=== PATIENT | female | born 1995 | race Caucasian/White ===

== ENCOUNTER 2025-04-30 08:25 | Outpatient (REF) | payer MEDICAID, SELFPAY ==
--- OUTSIDE RECORDS SUMMARY | 2025-04-30 08:31 | XMS_ITS | Data Portability ---
Author Organization [place] - [facility], Allergy Address [address] [address] Care Team Providers Care Washing Machine Installer Name Role Phone [facility] Primary Care Provider NAME, REYMUNDO Primary Care Provider Assessment Encounter Date Assessment Date Assessment LastModified by Organization Details LastModified Time 02/15/2025 02/15/2025 29-year-old female with a history of allergic rhinitis on IT presents today with epistaxis. There is a little dried blood on the left. I recommended taking a break from the antihistamine and nasal steroid spray. When she resumes them I recommended using cross handed technique. We had a detailed discussion on nasal humidification with humidifier, saline sprays, saline jelly at night, applied to the outer nares and not with a Qtip. Using pressure and Afrin as needed for a nosebleed was discussed. She declined cautery at this time and will try the other methods first. She also has some left-sided ear pressure which has improved. This is probably related to her allergies. Middle ear is well aerated. We can assess further with audiometric testing if symptoms worsen. [email or web address] Not available 02/16/2025 08:46:47 03/05/2025 03/05/2025 Visit With: Cathy Colbert Use of Antihistamines: Yes If yes: Vial Test Change in medications: No If yes Increase in asthma symptoms If yes, inhaler use: Reaction to last injections: No If yes: Allergy Symptoms: Other: Missed: Dose Aware of Vial Test Yes Notes: [email or web address] Not available 03/05/2025 11:22:54 03/19/2025 03/19/2025 Visit With: Altagracia Abreu RN Use of Antihistamines: No If yes: Vial Test Yes Change in medications: No If yes Increase in asthma symptoms No If yes, inhaler use: Reaction to last injections: No If yes: Allergy Symptoms: Other: Missed: 1 week Dose Aware of Vial Test Aware: Notes:vial test placed by Oksana flores Not available 03/19/2025 09:22:20 04/09/2025 04/09/2025 Visit With: PHUONG Alicea Use of Antihistamines: Yes If yes: Vial Test Change in medications: No If yes Increase in asthma symptoms If yes, inhaler use: Reaction to last injections: No If yes: Allergy Symptoms: Other: Missed: 2 weeks Dose Repeated Aware of Vial Test Aware: Notes: [email or web address] Not available 04/09/2025 12:14:52 04/14/2025 04/14/2025 Visit With: PHUONG Alicea Use of Antihistamines: Yes If yes: Vial Test Change in medications: No If yes Increase in asthma symptoms If yes, inhaler use: Reaction to last injections: No If yes: Allergy Symptoms: Other: Missed: Dose Aware of Vial Test Aware: Notes: [email or web address] Not available 04/14/2025 10:17:16 Plan of Treatment Reminders Order Date Submit Date Provider Last Modified By Organization Details Last Modified Time Details Appointments [facility]- Allergy f-up 6mon 2024 09:00A M DUC WILSON MD Not available Not available Not available Lab None recorded . Referral None recorded . Procedures None recorded . Surgeries None recorded . Imaging None recorded . Medication Orders None recorded . Patient TargetsNo targets recorded. Patient InstructionsNo instructions recorded. Reason for Referral None Reported. Problems Name Problem SNOMED Code Status Onset Date Resolution Date Notes Provider Name and Address Organization Details Recorded Time Abnormal auditory perception 19255665 Active 2023 Aisha narvaez [place] - [facility] 13:28:19 Allergic rhinitis 66071605 Active 2023 KANWAL WALDRON PA-C [address] [place] [address], [address] [place] [address] - [facility] 4 13:45:20 Seasonal allergic rhinitis 838989820 Active 2023 KANWAL WALDRON PA-C 100 [facility], E [facility], [place], [address], [facility] - [facility] [place] 4 13:45:35 Non-allergi c rhinitis 817834991559 Active 2023 KANWAL WALDRON PA-C 100 [facility], E [facility], [place], [address], [facility] - [facility] [place] 4 13:45:35 Feeling of lump in throat 244134490 Active 2023 KANWAL WALDRON PA-C 100 [facility], E [facility], [place], [address], [facility] - [facility] [place] 4 16:11:03 Perennial allergic rhinitis 979711480 Active 2024 KANWAL WALDRON PA-C 100 [facility], E [facility], [facility], [address], [facility] - [facility] [place] 5 08:56:52 Bleeding from nose 373360400 Active 2024 OLVIN SEGURA MD 100 [facility], E [facility], [facility], [address], [facility] - [facility] [place] 5 08:44:48 Allergic rhinitis caused by pollen 69228830 Active 2024 OLVIN SEGURA MD 100 [facility], E [facility], [place], [address], [facility] - [facility] [place] 5 08:44:59 Dysfunction of left eustachian tube 2617693179435 106 Active 2024 OLVIN SEGURA MD 100 [facility],[address], [facility], [address], [facility] - [facility] 5 08:45:10 Problem Notes None recorded. Procedures Surgical History Date Name Laterality Status Provider Name and Address Organization Details Recorded Time 04/14/20 25 Allergy Immunotherapy Injections completed GLORIA DICKSON, RMElissa [address], [place], [address], [place] - [facility] 04/14/2025 10:16:59 04/09/20 25 Allergy Immunotherapy Injections completed PHUONG HUDSON [address], [place], [address], [place] [facility] 04/09/2025 12:14:36 03/19/20 25 Allergy Immunotherapy Injections completed BETSEY ABREU RN [address], [place], [address], [place] [facility] 03/19/2025 09:21:37 03/05/20 25 Allergy Immunotherapy Injections completed PHUONG HUDSON [address], [place], [address], [place] [facility] 03/05/2025 11:22:37 02/13/20 25 Allergy Immunotherapy Injections completed BETSEY ABREU RN [address] [facility], [place], [address], [place] [facility] 02/12/2025 09:59:36 02/06/20 25 Allergy Immunotherapy Injections completed BETSEY ABREU RN [address] [place] [address], [address], [place] [facility] 02/05/2025 10:59:03 01/23/20 25 Allergy Immunotherapy Injections completed PHUONG HUDSON [address], [place], [address], [place] [facility] 01/22/2025 09:10:11 01/14/20 25 Allergy Immunotherapy Injections completed PHUONG HUDSON [address], [place], [address], [place] [facility] 01/13/2025 10:43:27 01/02/20 25 Allergy Immunotherapy Injections completed GLORIA DICKSON RMA [address], [place], [address], [place] [facility] 01/01/2025 09:41:22 03/07/20 25 Allergy Immunotherapy Injections completed LELO COLBERT A [address], [place], [address], [facility] - [facility] 12/18/2024 09:51:23 12/11/19 25 Allergy Immunotherapy Injections completed BETSEY ABREU RN [address] [facility] [address], [place], [address], [facility] - [facility] 12/11/2024 09:18:09 12/04/19 25 Allergy Immunotherapy Injections completed GLORIA DICKSON, RMA [address], [place], [address], [facility] - [facility] 12/04/2024 13:23:39 11/23/19 25 Allergy Immunotherapy Injections completed GLORIA DICKSON, RMA [address] [facility] [address], [place], [address], [facility] - [facility] 11/23/2024 09:43:57 10/16/19 25 Allergy Testing-Full completed PHUONG HUDSON [address] [facility] [address] [facility], [place], [address], [facility] - [facility] 10/16/2024 10:11:58 10/13/20 24 Allergy Testing Modified- Quantitative Testing (MQT) Only completed LELO COLBERT [facility] [address] [facility], [place], [address], [facility] - [facility] 10/13/2024 10:01:03 09/07/20 24 Air & Speech Audio with Tymps - 06368, 95603 & 43482 completed Aisha Weinberg [place] - [facility] 09/07/2024 13:28:10 Tonsillectomy completed Osbaldo Hastings [place] - [facility] 09/07/2024 13:39:08 Imaging Results None recorded. Procedure Notes None recorded. Medical Equipment None Reported. Allergies No known drug allergies Medications Name Sig Start Date Stop Date Status Note LastModified by Organization Details LastModified Time cetirizine 10 mg tablet TAKE 1 TABLET BY MOUTH EVERY DAY IN THE MORNING active Not Available Not Available No t Available azelastine 137 mcg (0.1 %) nasal spray SPRAY 2 SPRAYS BY INTRANASA L ROUTE TWICE A DAY FOR 30 DAYS 2024 active Not Available Not Available Not Avai lable epinephrine 0.3 mg/0.3 mL injection, auto-inject or TAKE 1 AUTO BY INJECTION ROUTE FOR 180 DAYS, FOR ANAPHYLAX IS. active Not Available Not Available No t Available fluticasone propionate 50 mcg/actuati on nasal spray,suspe nsion SPRAY 2 SPRAYS INTO EACH NOSTRIL IN THE MORNING SHAKE GENTLY/TX MADISON BEFORE 1ST USE&CLEAN TIP active Not Available Not Available No t Available olmesartan 5 mg tablet TAKE 1 TABLET BY MOUTH EVERY DAY IN THE MORNING active Not Available Not Available No t Available Symbicort 80 mcg-4.5 mcg/actuati on HFA aerosol inhaler PLEASE SEE ATTACHED FOR DETAILED DIRECTION S 02/15 completed Not Available Not Available Not Available Vitals Date Recorded Body height Body mass index (BMI) Body weight Provider Name and Address Organization Details Last Updated DateTime 02/15/2025 157.48 cm 37.5 kg/m2 14368.44 g Ally Jama [place] - [facility] 02/15/2025 14:25:19 Social History None recorded. Functional Status None recorded. Mental Status None recorded. Family History Nothing Reported. Medical History Condition Response Emphysema N Migraines Y Asthma Y Hypertension Y Gynecological HistoryNo gynecological history recorded. Obstetrics History GPAL:G 0 P 0 0 0 0 Past Encounters Encounter ID Performer Location Encounter Start Date Encounter Closed Date Diagnosis/Indication Diagnosis SNOMED-CT Code Diagnosis ICD10 Code Diagnosis Note [id number] KANWAL WALDRON PA-C [facility] [address] [address] 09/07/2024 12:40:34 09/08/2024 07:20:13 Abnormal auditory perception 82803254 H93.299 Audiologic al evaluation results: Right ear: Normal hearing with excellent word recognitio n. Left ear: Normal hearing with excellent word recognitio n. Tympanomet ry: Right Ear:Type As Left Ear:Type As Allergic rhinitis 094756 04 J30.9 Feeling of lump in throat 898614284 R09.89 [id number] PHUONG HUDSON [facility] [address] [place] [address] [address] 10/13/2024 08:46:06 10/13/2024 10:11:59 Allergic rhinitis 97421454 J30.9 [id number] PHUONG HUDSON [facility] [address] [place] [address],[facility] [address], [place] [address] 10/16/2024 08:51:44 10/16/2024 10:14:06 Allergic rhinitis 40407458 J30.9 [id number] KANWAL WALDRON PA-C [facility] - Ashok r[address]os 100 [facility] [place], [place] [address] 10/27/2024 08:50:14 10/27/2024 09:17:40 Perennial allergic rhinitis 429139614 J30.89 Allergic rhinitis 780421 04 J30.89 [id number] GLORIA WATSON, [facility] 100 [facility] [address], [place] [address] 11/23/2024 09:07:25 11/23/2024 09:44:42 Perennial allergic rhinitis 352734384 J30.89 Patient presents to begin immunother apy injections . Reviewed injection hours, importance of compliance and of reporting any changes in medication s. Also reviewed importance of reporting any local reactions to immunother apy injections . For patients of child bearing age, reviewed importance of reporting . Follow up with MD made in 6 months. [id number] GLORIA WATSON [facility] [address] [place] [address],[facility] [address], [place] [address] 12/04/2024 13:11:06 12/04/2024 13:25:21 Perennial allergic rhinitis 914187039 J30.89 Patient presents to begin immunother apy injections . Reviewed injection hours, importance of compliance and of reporting any changes in medication s. Also reviewed importance of reporting any local reactions to immunother apy injections . For patients of child bearing age, reviewed importance of reporting . Follow up with MD made in 6 months. [id number] BETSEY ABREU RN Allergy 100 [facility] [address], [place] [address] 12/11/2024 09:08:33 12/11/2024 09:18:30 Perennial allergic rhinitis 238610591 J30.89 [id number] PHUONG HUDSON [address] [place] [address], ite [address] [place] [address] 12/18/2024 09:34:41 12/18/2024 09:52:22 Perennial allergic rhinitis 605783644 J30.89 [id number] GLORIA WATSON [facility] [address] [place] [address], it[address] [place] [address] 01/01/2025 09:31:51 01/01/2025 09:41:49 Perennial allergic rhinitis 861590505 J30.89 Patient presents to begin immunother apy injections . Reviewed injection hours, importance of compliance and of reporting any changes in medication s. Also reviewed importance of reporting any local reactions to immunother apy injections . For patients of child bearing age, reviewed importance of reporting . Follow up with MD made in 6 months. [id number] GLORIA WATSON [facility] [address] [place] [address], ite [address] [place] [address] 01/13/2025 10:21:26 01/13/2025 10:44:12 Perennial allergic rhinitis 766438464 J30.89 Patient presents to begin immunother apy injections . Reviewed injection hours, importance of compliance and of reporting any changes in medication s. Also reviewed importance of reporting any local reactions to immunother apy injections . For patients of child bearing age, reviewed importance of reporting . Follow up with MD made in 6 months. [id number] LELO COLBERT [facility] [address] [place] [address], it[address] [place] [address] 01/22/2025 09:02:38 01/22/2025 09:10:28 Perennial allergic rhinitis 896304173 J30.89 [id number] BETSEY ABREU RN Allergy [address] [place] [address],[place] [facility] [address] [place] [address] 02/05/2025 10:46:08 02/05/2025 10:59:32 Perennial allergic rhinitis 910817975 J30.89 [id number] BETSEY ABREU RN Allergy [address] [place] [address],[place] [facility] [address] [place] [address] 02/12/2025 09:01:26 02/12/2025 10:00:03 Perennial allergic rhinitis 771984374 J30.89 [id number] OLVIN SEGURA MD [facility] 100 [place] [address] 02/15/2025 14:00:46 02/15/2025 14:40:49 Bleeding from nose 707471500 R04.0 Allergic r hinitis caused by pollen 96497207 J30.1 Dysfunctio n of left eustachian tube 6252015263 305421 H69.92 [id number] LELO COLBERT [facility] [address] [place] [address], [place] [address] 03/05/2025 09:06:49 03/05/2025 11:36:29 Perennial allergic rhinitis 286604174 J30.89 [id number] BETSEY ABREU RN Allergy [address] [place] [address], [place] [address] 03/19/2025 09:01:12 03/19/2025 09:22:46 Perennial allergic rhinitis 812457180 J30.89 [id number] GLORIA WATSON, [facility] [address] [place] [address] [place] [address] 04/09/2025 11:05:22 04/09/2025 12:15:06 Perennial allergic rhinitis 444931698 J30.89 Patient presents to begin immunother apy injections . Reviewed injection hours, importance of compliance and of reporting any changes in medication s. Also reviewed importance of reporting any local reactions to immunother apy injections . For patients of child bearing age, reviewed importance of reporting . Follow up with MD made in 6 months. [id number] GLORIA WATSON, [facility] [address] [place] [address],[facility] 100 [place] [address] 04/14/2025 09:50:22 04/14/2025 10:17:40 Perennial allergic rhinitis 928469199 J30.89 Patient presents to begin immunother apy injections . Reviewed injection hours, importance of compliance and of reporting any changes in medication s. Also reviewed importance of reporting any local reactions to immunother apy injections . For patients of child bearing age, reviewed importance of reporting . Follow up with MD made in 6 months. Health Concerns Section Related Observation LastModified by Organization Detai ivania LastModified Time None Recorded Concern Status LastModified by Organization Details LastModified Time None Recorded Advance Directives Directive None Recorded Payers Insurance Date Sequence Insurance Name Policy Number Policy [place] Covered Member ID [place] Member ID Guarantor Name 04/14/2025 1 [place] [facility] Gian Nair [id number] Gian Nair Notes Date Note Type Note Provider Name and Address Organization Details Recorded Time 5 text/html 29 yo F with allergies presents for evaluation of epistaxis and left earpressurenosebleeds 3-5 per daymost recent yesterday evening left sidethday 2 hours has been outside morestill using allergy nasal sprays2 humidifiersCPA with humidity left side ear pressure has dissipatedhigher pitched sounds will get whistlingwisdom teeth irritating OLVIN SEGURA MD [address] [place] [address], [place], [address], [facility] - [facility] 02/16/2025 08:47:02 OBGyn Episode No OBEpisode recorded.
--- OUTSIDE RECORDS SUMMARY | 2025-04-30 08:31 | XMS_ITS | Encounter Summary ---
Author Organization [employer] Address 75 [facility] 7 [place] [address] Care Team Providers Care Chemical Treatment Operator Name Role Phone [facility] Primary Care Provider [phone] Reason for Visit * Reason Comments Med Refill Encounter Details Date Type Department Care Team ([facility] st Contact Info) Description 05/02/2024 Refill [facility] MEDICINE [address] [place], [place] [phone] [facility] [address] [place] [address] Acute non-recurrent frontal sinusitis Social History Tobacco Use Types Packs/Day Years Used Date Smoking Tobacco: Former Cigarettes Passive Smoke Exposure: Never Smokeless Tobacco: Never Alcohol Use Standard Drinks/Week Comments Yes 1 (1 standard drink = 0.6 oz pur e alcohol) Alcohol Answer Date Recorded Frequency of Alcohol Consumption Not on file 03/02/2024 Average Number of Drinks Not on file 024 Frequency of Binge Drinking Not on file 02/12 Score 0 03/02/2024 Depression Answer Date Recorded Patient Health Questionnaire-9 Score 0 03/02/2024 Patient Health Questionnaire-9 Score 0 03/02/2024 Last PHQ-9: Questionnaire Data Not on file 0 03/02/2024 Housing Stability Answer Date Recorded What is your housing situation today? I have ladan kimbrough 03/02/[address] you li ve. Do you have problems with any of the following? None of the above 03/02/2024 Food Insecurity Answer Date Recorded Within the past 12 months, y ou worried that your food would run out before you got money to buy more: Never True 03/02/2024 Within the past 12 months,th e food you bought just didn't last and you didn't have enough money to get more: Never True Transportation Answer Date Recorded In the past 12 months, has l ack of transportation kept you from medical appts, meetings, work or from getting things needed for daily living? No 03/02/2024 Utilities Answer Date Recorded In the past 12 months, has t he electric, gas, oil or water company threatened to shut off services in your home? No 03/02/2024 Depression Answer Date Recorded Patient Health Questionnaire-2 Score 0 03/02/2024 Comments Unknown Sex and Gender Information Value Date Recorded Sex Assigned at Female 08/13/2022 10:40 AM EDT Legal Sex Female 10:40 AM EDT Gender Identity Female 08/13/2022 10:40 AM EDT Sexual Orientation Straight 08/13/2022 10 :40 AM EDT documented as of this encounter Plan of Treatment Upcoming Encounters Date Type Department Care Team (Late st Contact Info) Description 05/12/2025 9:30 AM EDT Clinical Support [facility] MEDICINE [address] [place] [address] 05/25/2025 8:00 AM EDT Office Visit [facility] ADULT DENTAL [address] [place] [address] Lopez-SolizCarmelita dunbar, DDS [address] [place] [address] 09/28/2025 1:00 PM EST Office Visit [facility] ADULT DENTAL [address] [place] [address] Corina Azra [address] [place] [address] documented as of this encounter Visit Diagnoses Diagnosis Acute non-recurrent frontal sinusitis documented in this encounter Additional Health Concerns Assessment Noted Time PHQ-9 Depression Total Score: 0 03/02/20 24 9:17 AM EDT documented as of this encounter Care Teams Chemical Treatment Operator Relationship Specialty Start Date End Date Jeanette Mohan FNP [address] [place] [address] PCP - General Family Medicine 01/26/22 documented as of this encounter
[2025-04-30 11:22] LABS: MANUAL DIFF FLAG NO
[2025-04-30 11:30] LABS: Hematocrit 41.9 % (37.0-47.0); Hemoglobin 13.8 g/dl (12.0-16.0); Imm Gran Abs Auto 0.04 X10*3/uL (0.00-0.03); Imm Gran Pct Auto 0.5 % (0.0-0.4); Lymphocytes Absolute Auto 1.2 X10*3/uL (1.2-4.9); Mean Corpuscular HGB Conc 32.9 g/dl (31.0-35.0); Mean Corpuscular Hemoglobin 30.8 pg (27.0-33.0); Mean Corpuscular Volume 93.5 fL (80.0-98.0); NRBC Abs Auto 0.000 X10*3/uL (0.0-0.012); NRBC Pct Auto 0.0 /100WBC (0.0-0.2); Platelet Count 256 X10*3/uL (160-400); Red Blood Count 4.48 X10*6/uL (4.20-5.50); White Blood Count 7.7 X10*3/uL (4.8-10.8)
[2025-04-30 11:53] LABS: Alanine Aminotransferase 91 U/L (0-31); Albumin Level 4.4 g/dL (3.5-5.0); Alkaline Phosphatase 66 U/L (39-117); Anion Gap 13 (12-20); Aspartate Amino Transferase 101 U/L (5-31); Blood Urea Nitrogen 6 mg/dL (9-16); Calcium 9.7 mg/dL (8.4-10.2); Carbon Dioxide 26 mmol/L (22-29); Chloride 104 mmol/L (96-108); Estimated Glomerular Filt Rate > 60; Potassium 4.3 mmol/L (3.3-5.1); Sodium 139 mmol/L (135-145); Total Protein 7.3 g/dL (6.5-8.0)
[2025-04-30 13:17] LABS: Free T4 (Free Thyroxine) 0.95 ng/dL (0.71-1.85)
[2025-05-05 01:05] LABS: Anti-Mullerian Hormone-Female 3.96 ng/mL (0.69-13.39)
[2025-05-05 14:08] LABS: Follicle Stimulating Hormone 5.9 mIU/mL; Prolactin Undiluted 10.5 ng/mL
[2025-05-08 08:13] LABS: Estradiol Ultra Sensitive 35 pg/mL
== END 2025-04-30 08:26 | disposition home or self-care (01) ==
LOC: HO.HHCL 08:25
PROVIDERS: PCP Registered Nurse; Visit Provider Registered Nurse
DX: R04.0 Epistaxis (principal); I10 Essential (primary) hypertension; N92.6 Irregular menstruation, unspecified
CPT/HCPCS: 36415; 80053; 82166; 82670; 83001; 84146; 84439; 84443; 85025

== ENCOUNTER 2025-08-23 14:28 | Outpatient (REF) | payer MEDICAID, SELFPAY ==
--- OUTSIDE RECORDS SUMMARY | 2025-08-23 16:48 | XMS_ITS | Continuity of Care Document ---
Author Organization [place] - [facility], Allergy Address [address] [place] [address] Care Team Providers Care Operator/Assistant Foreman Name Role Phone [facility] Primary Care Provider [phone] NAME, REYMUNDO Primary Care Provider [phone] Assessment Encounter Date Assessment Date Assessment LastModified by Organization Details LastModified Time 06/01/2025 06/01/2025 Visit With: Ayla Colbert Use of Antihistamine s: Yes If yes: Daily Vial Test Change in medications: No If yes Increase in asthma symptoms If yes, inhaler use: Reaction to last injections: No If yes: Allergy Symptoms: Other: Missed: 2 weeks Dose Repeated Aware of Vial Test Yes Aware: Notes: Not available 06/01/2025 11:30:50 Plan of Treatment Reminders Order Date Submit Date Provider Last Modified By Organization Details Last Modified Time Details Appointments [facility]- Allergy f-up 6mon 2025 09:00A M EDDIE HAGAN Not available Not available Not available Lab [...] Organization Details Recorded Time Abnormal auditory perception 35526830 Active 2023 Aisha narvaez [place] - [facility] 13:28:19 Allergic rhinitis 27112033 Active 2023 DUC WILSON MD [address] [facility], [address], [place], [address] [place] [address] - [facility] 09:17:57 Seasonal allergic rhinitis 756102906 Active 2023 Marianathalia Costello null, [place] - [facility] 13:45:35 Non-allergi c rhinitis 016005967497 Active 2023 [facility] [place] [facility] 13:45:35 Feeling of lump in throat 757004247 Active 2023 [facility] [place] [facility] 16:11:03 Perennial allergic rhinitis 551287694 Active 2024 Isaak Fran [address] [place] [address], [place], [address], [facility] - [facility] 09:13:18 Bleeding from nose 198132688 Active 2024 OLVIN SEGURA MD [address] [place] [address], [place], [address], [facility] - [facility] 08:44:48 Allergic rhinitis caused by pollen 25177520 Active 2024 OLVIN SEGURA MD [address] [place] [address], [place], [address], [facility] - [facility] 08:44:59 Dysfunction of left eustachian tube 9605164985113 106 Active 2024 OLVIN SEGURA MD [address] [place] [address], [place], [address], [facility] - [facility] 08:45:10 Obstructive sleep apnea syndrome 74382383 Active 2024 DUC WILSON MD [address] [place] [address], [place], [address], [facility] - [facility] 09:18:42 Problem Notes None recorded. Procedures Surgical History Date Name Laterality Status Provider Name and Address Organization Details Recorded Time 10/23/20 25 Allergy Immunotherapy Injections completed GLORIA DICKSON, RMA [address], [place], [address], [place] - [facility] 08/05/2025 09:50:43 07/23/20 25 Allergy Immunotherapy Injections completed Isaak Peters [address], [place], [address], [place] [facility] 07/23/2025 09:14:00 07/07/20 25 Allergy Immunotherapy Injections completed AYLA COLBERT RMA [address], [place], [address], [place] [facility] 07/07/2025 10:10:21 06/24/20 25 Allergy Immunotherapy Injections completed GLORIA DICSKON, RMA [address], [place], [address], [place] [facility] 06/24/2025 13:03:20 06/16/20 25 Allergy Immunotherapy Injections completed Isaak Peters [address] [place], [place], [address], [facility] - [facility] 06/16/2025 09:56:04 06/16/20 25 Epistaxis Simple Nasal Cautery Left completed DUC VAZ MD [address] [place], [place], [address], [facility] - [facility] 06/16/2025 09:17:51 06/10/20 25 Allergy Immunotherapy Injections completed Isaak Peters [address] [place],[address] [facility], [place], [address], [facility] - [facility] 06/10/2025 09:21:19 06/01/20 25 Allergy Immunotherapy Injections completed AYLA COLBERT RMA [address], [place], [address], [facility] - [facility] 06/01/2025 11:31:08 05/13/20 25 Allergy Immunotherapy Injections completed GLORIA DICKSON, RMA [address], [place], [address], [place] [facility] 05/13/2025 11:09:40 04/30/20 25 Allergy Immunotherapy Injections completed BETSEY ABREU RN [address], [place], [address], [place] [facility] 04/30/2025 09:18:48 04/14/20 25 Allergy Immunotherapy Injections completed GLORIA DICKSON RMElissa [address], [place], [address], [place] [facility] 04/14/2025 10:16:59 04/09/20 25 Allergy Immunotherapy Injections completed PHUONG HUDSON [address], [place], [address], [place] [facility] 04/09/2025 12:14:36 03/19/20 25 Allergy Immunotherapy Injections completed BETSEY ABREU RN [address], [place], [address], [place] [facility] 03/19/2025 09:21:37 03/05/20 25 Allergy Immunotherapy Injections completed PHUONG HUDSON [address] [place] [address], [address], [place] [facility] 03/05/2025 11:22:37 02/13/20 25 Allergy Immunotherapy Injections completed BETSEY ABREU RN [address] [place],[address] [place] [address], [address], [place] [facility] 02/12/2025 09:59:36 02/06/20 25 Allergy Immunotherapy Injections completed BETSEY ABREU RN [address] [place],[address] [place] [address], [address], [place] [facility] 02/05/2025 10:59:03 01/23/20 25 Allergy Immunotherapy Injections completed PHUONG HUDSON [address], [place], [address], [place] [facility] 01/22/2025 09:10:11 01/14/20 25 Allergy Immunotherapy Injections completed PHUONG HUDSON [address], [place], [address], [place] [facility] 01/13/2025 10:43:27 01/02/20 25 Allergy Immunotherapy Injections completed GLORIA DICKSON, RMA [address], [place], [address], [facility] - [facility] 01/01/2025 09:41:22 12/19/19 25 Allergy Immunotherapy Injections completed PHUONG HUDSON [address], [place], [address], [facility] - [facility] 12/18/2024 09:51:23 12/11/19 25 Allergy Immunotherapy Injections completed BETSEY ABREU RN [address], [place], [address], [facility] - [facility] 12/11/2024 09:18:09 12/04/19 25 Allergy Immunotherapy Injections completed GLORIA DICKSON, RMA [address], [place], [address], [facility] - [facility] 12/04/2024 13:23:39 11/23/19 25 Allergy Immunotherapy Injections completed GLORIA DICKSON, RMA [address] [facility], [place], [address], [facility] - [facility] 11/23/2024 09:43:57 10/16/19 25 Allergy Testing-Full completed PHUONG HUDSON [address] [facility], [place], [address], [facility] - [facility] 10/16/2024 10:11:58 10/13/20 24 Allergy Testing Modified- Quantitative Testing (MQT) Only completed PHUONG HUDSON [address] [place], [place], [address], [facility] - [facility] 10/13/2024 10:01:03 09/07/20 24 Air & Speech Audio with Tymps - [id number], [id number] & [id number] completed Aisha [place] - [facility] 09/07/2024 13:28:10 Tonsillectomy completed Osbaldo Hastings [place] - [facility] 09/07/2024 13:39:08 Imaging Results None recorded. Procedure Notes None recorded. Medical Equipment None Reported. Medications Name Sig Start Date Stop Date Status Note LastModified by Organization Details LastModified Time cetirizine 10 mg tablet TAKE 1 TABLET BY MOUTH EVERY DAY IN THE MORNING active Not Available Not Available No t Available nifedipine ER 30 mg tablet,exte nded release TAKE 1 TABLET (30 MG) BY MOUTH BEFORE BREAKFAST . DO NOT CRUSH, CHEW, OR SPLIT. active Not Available Not Available No t Available azelastine 137 mcg (0.1 %) nasal spray SPRAY 2 SPRAYS BY INTRANASA L ROUTE TWICE A DAY active Not Available Not Available No t Available epinephrine 0.3 mg/0.3 mL injection, auto-inject or TAKE 1 AUTO BY INJECTION ROUTE FOR 180 DAYS, FOR ANAPHYLAX IS. active Not Available Not Available No t Available fluticasone propionate 50 mcg/actuati on nasal spray,suspe nsion SPRAY 2 SPRAYS INTO EACH NOSTRIL IN THE MORNING SHAKE GENTLY/CT [place] BEFORE 1ST USE&CLEAN TIP active Not Available Not Available No t Available olmesartan 5 mg tablet TAKE 1 TABLET BY MOUTH EVERY DAY IN THE MORNING 04/30 completed Not Available Not Available Not Available Symbicort 80 mcg-4.5 mcg/actuati on HFA aerosol inhaler PLEASE SEE ATTACHED FOR DETAILED DIRECTION S active Not Available Not Available No t Available Vitals None Recorded Social History None recorded. Functional Status None recorded. Mental Status None recorded. Family History Nothing Reported. Medical History Condition Response Emphysema N Migraines Y Hypertension Y Asthma Y Gynecological HistoryNo gynecological history recorded. Obstetrics History GPAL:G 0 P 0 0 0 0 Past Encounters Encounter ID Performer Location Encounter Start Date Encounter Closed Date Diagnosis/Indication Diagnosis SNOMED-CT Code Diagnosis ICD10 Code Diagnosis IMO Codes Diagnosis Note [id number] PHUONG OROPEZA Allergy [address] [facility] [place] [address] 05/13/2025 10:25:18 05/13/2025 11:10:41 Perennial allergic rhinitis 222614468 J30.89 Patient presents to begin immunother apy injections . Reviewed injection hours, importance of compliance and of reporting any changes in medication s. Also reviewed importance of reporting any local reactions to immunother apy injections . For patients of child bearing age, reviewed importance of reporting . Follow up with MD made in 6 months. [id number] PHUONG HUDSON Allergy [address] [facility],[place] [address] [place] [address] 06/01/2025 11:16:35 06/01/2025 11:31:26 Perennial allergic rhinitis 578252031 J30.89 Health Concerns Section Related Observation LastModified by Organization Detai ls LastModified Time None Recorded Concern Status LastModified by Organization Details LastModified Time None Recorded Payers Encounter Date Sequence Insurance Name Policy Number Policy [place] Covered Member ID [place]itting[place] Member ID Guarantor Name 06/01/2025 1 [place] [facility] Gian Nair [id number] Gian Nair OBGyn Episode No OBEpisode recorded.
--- OUTSIDE RECORDS SUMMARY | 2025-08-23 16:48 | XMS_ITS | Encounter Summary ---
Author Organization [employer] Address [address] [place] [address] [address] [place] [address] Care Team Providers Care Photo Tube Assembler Name Role Phone [facility] Primary Care Provider [phone] Reason for Visit * Reason Comments Med Refill Encounter Details Date Type Department Care Team (Late st Contact Info) Description 05/27/[address] [id number] [facility] [address] [place] [address] Essential hypertension Social History Tobacco Use Types Packs/Day Years Used Date Smoking Tobacco: Former Cigarettes Passive Smoke Exposure: Never Smokeless Tobacco: Never Alcohol Use Standard Drinks/Week Comments Yes 1 (1 standard drink = 0.6 oz pur e alcohol) Depression Answer Date Recorded Patient Health Questionnaire-9 Score 0 02/19/2023 Depression Answer Date Recorded Patient Health Questionnaire-2 Score 0 02/19/2023 Comments Unknown Sex and Gender Information Value Date Recorded Sex Assigned at Female 08/13/2022 10:40 AM EDT Legal Sex Female 10:40 AM EDT Gender Identity Female 08/13/2022 10:40 AM EDT Sexual Orientation Straight 08/13/2022 10 :40 AM EDT documented as of this encounter Plan of Treatment Upcoming Encounters Date Type Department Care Team (Late st Contact Info) Description 08/30/2025 10:30 AM EST Clinical Support [address] [address] 09/27/2025 9:00 AM EST Office Visit [address] [address] Jeanette Mohan FNP [address] [place] [address] 09/28/2025 2:00 PM EST Office Visit [facility] [address] [place], [place] [phone] David Arriagaaris [address] [place], [place] [phone] documented as of this encounter Visit Diagnoses Diagnosis Essential hypertension Unspecified essential hypertension documented in this encounter Additional Health Concerns Assessment Noted Time PHQ-9 Depression Total Score: 0 02/20/20 23 10:42 AM EDT documented as of this encounter Care Teams Photo Tube Assembler Relationship Specialty Start Date End Date Jeanette Mohan FNP [address] [place] [address] PCP - General Family Medicine 01/26/22 documented as of this encounter
--- OUTSIDE RECORDS SUMMARY | 2025-08-23 16:48 | XMS_ITS | Encounter Summary ---
Author Organization [employer] Address [address] [facility] 7 [place] [address] Care Team Providers Care Retail Planner Name Role Phone [facility] Primary Care Provider [phone] Reason for Visit * Reason Comments Med Refill Encounter Details Date Type Department Care Team ([facility] st Contact Info) Description 05/02/2024 Refill [facility] [address] [place], [place] [phone] [facility] [address] [place] [address] Acute non-recurrent frontal sinusitis Social History Tobacco [...] Description 08/30/2025 10:30 AM EST Clinical Support [facility] [address] [place] [address] 09/27/2025 9:00 AM EST Office Visit [facility] [address] [place] [phone] Jeanette Mohan [facility] [address] [place] [address] 09/28/2025 2:00 PM EST Office Visit [facility] [address] [place] [address] Corina, Azra [address] [place] [address] documented as of this encounter Visit Diagnoses Diagnosis Acute non-recurrent frontal sinusitis documented in this encounter Additional Health Concerns Assessment Noted Time PHQ-9 Depression Total Score: 0 03/02/20 24 9:17 AM EDT documented as of this encounter Care Teams Retail Planner Relationship Specialty Start Date End Date Jeanette Mohan FNP [address] [place] [address] PCP - General Family Medicine 01/26/22 documented as of this encounter
--- OUTSIDE RECORDS SUMMARY | 2025-08-23 16:48 | XMS_ITS | Continuity of Care Document ---
Author Organization [place] [facility], Allergy Address [address] [place] [address] Care Team Providers Care Legal Librarian Name Role Phone [facility] Primary Care Provider [phone] NAME, REYMUNDO Primary Care Provider Assessment Encounter Date Assessment Date Assessment LastModified by Organization Details LastModified Time 07/07/2025 07/07/2025 Visit With: Isaak Peters [place] Use of Antihistamine s: Yes If yes: Vial Test Change in medications: No If yes Increase in asthma symptoms If yes, inhaler use: Reaction to last injections: No If yes: Allergy Symptoms: Other: Missed: Dose Aware of Vial Test Aware: Notes: [email or web address] Not available 07/07/2025 10:10:35 Plan of Treatment Reminders Order Date Submit Date Provider Last Modified By Organization Details Last Modified Time Details Appointments [facility]- Allergy f-up 6mon 2025 09:00A M EDDIE [...] Organization Details Recorded Time Abnormal auditory perception 63306583 Active 2023 Aisha narvaez [place] - [facility] 13:28:19 Allergic rhinitis 06512751 Active 2023 DUC WILSON MD 100 [facility] 100, [place], [address] , [facility] 5 09:17:57 Seasonal allergic rhinitis 833326564 Active 2023 [facility] null, [place] [facility] [place] 4 13:45:35 Non-allergi c rhinitis 679323419969 Active [facility]23 [facility] [facility] [place] 4 13:45:35 Feeling of lump in throat 477622162 Active 2023 [facility] null[place] [facility] 4 16:11:03 Perennial allergic rhinitis 087519594 Active 2024 Isaak Peters [address] [address], [place], [address], [facility] - [facility] 5 09:13:18 Bleeding from nose 563051607 Active 2024 OLVIN SEGURA MD [address] [place] [address], [place], [address], [facility] - [facility] 5 08:44:48 Allergic rhinitis caused by pollen 80012298 Active 2024 OLVIN SEGURA MD [address] [place] [address], [facility] [place] [place], [address], [facility] - [facility] 5 08:44:59 Dysfunction of left eustachian tube 9106833561169 106 Active 2024 OLVIN SEGURA MD [address] [place] [address], [facility] [place] [place], [address], [facility] - [facility] 5 08:45:10 Obstructive sleep apnea syndrome 06000712 Active 2024 DUC WILSON MD [address] [place] [address], [facility] [place] [place], [address], [facility] - [facility] 5 09:18:42 Problem Notes None recorded. Procedures Surgical History Date Name Laterality Status Provider Name and Address Organization Details Recorded Time 10/23/20 25 Allergy Immunotherapy Injections completed GLORIA KORZEC, RMA [address], [place], [address], [place] [facility] 08/05/2025 09:50:43 07/23/20 25 Allergy Immunotherapy Injections completed Isaak Peters [address], [place], [address], [place] [facility] 07/23/2025 09:14:00 07/07/20 25 Allergy Immunotherapy Injections completed JANNETTE HUDSONA 100 [facility], [place], [address], [place] [facility] 07/07/2025 10:10:21 06/24/20 25 Allergy Immunotherapy Injections completed GLORIA DICKSON, RMA 100 [facility], [address], [place], [address], [place] [facility] 06/24/2025 13:03:20 06/16/20 25 Allergy Immunotherapy Injections completed Isaak Peters 100 [facility], [address], [place], [address], [place] [facility] 06/16/2025 09:56:04 06/16/20 25 Epistaxis Simple Nasal Cautery Left completed DUC VAZ MD 100 [facility], [address] [place] [address], [address], [place] [facility] 06/16/2025 09:17:51 06/10/20 25 Allergy Immunotherapy Injections completed Isaak Peters 100 [facility], [address], [place], [address], [facility] - [facility] 06/10/2025 09:21:19 06/01/20 25 Allergy Immunotherapy Injections completed LELO COLBERT RMA 100 [facility], [place], [address], [place] [facility] 06/01/2025 11:31:08 05/13/20 25 Allergy Immunotherapy Injections completed GLORIA DICKSON, RMA [address], [place], [address], [place] [facility] 05/13/2025 11:09:40 04/30/20 25 Allergy Immunotherapy Injections completed BETSEY ABREU RN [address], [place], [address], [place] [facility] 04/30/2025 09:18:48 04/14/20 25 Allergy Immunotherapy Injections completed PHUONG OROPEZA [address], [place], [address], [place] [facility] 04/14/2025 10:16:59 04/09/20 25 Allergy Immunotherapy Injections completed PHUONG HUDSON [address], [place], [address], [place] [facility] 04/09/2025 12:14:36 03/19/20 25 Allergy Immunotherapy Injections completed BETSEY ABREU RN 100 [facility], [address] [place] [address], [address], [place] [facility] 03/19/2025 09:21:37 03/05/20 25 Allergy Immunotherapy Injections completed PHUONG HUDSON 100 [facility], [address] [place] [address], [address], [place] [facility] 03/05/2025 11:22:37 02/13/20 25 Allergy Immunotherapy Injections completed BETSEY ABREU RN 100 [facility], [address] [place] [address], [address], [place] [facility] 02/12/2025 09:59:36 02/06/20 25 Allergy Immunotherapy Injections completed BETSEY ABREU RN 100 [facility], [address] [place] [address], [address], [place] [facility] 02/05/2025 10:59:03 01/23/20 25 Allergy Immunotherapy Injections completed PHUONG HUDSON 100 [facility], [place], [address], [place] [facility] 01/22/2025 09:10:11 01/14/20 25 Allergy Immunotherapy Injections completed PHUONG HUDSON [address], [place], [address], [place] [facility] 01/13/2025 10:43:27 01/02/20 25 Allergy Immunotherapy Injections completed GLORIA DICKSON, RMA [address], [place], [address], [facility] - [facility] 01/01/2025 09:41:22 12/19/19 25 Allergy Immunotherapy Injections completed PHUONG HUDSON 100 [facility], [address], [place], [address], [facility] - [facility] 12/18/2024 09:51:23 12/11/19 25 Allergy Immunotherapy Injections completed BETSEY ABREU RN 100 [facility], [address], [place], [address], [facility] - [facility] 12/11/2024 09:18:09 12/04/19 25 Allergy Immunotherapy Injections completed GLORIA DICKSON, RMA 100 [facility], [address] [facility], [place], [address], [facility] - [facility] 12/04/2024 13:23:39 11/23/19 25 Allergy Immunotherapy Injections completed GLORIA DICKSON, [facility] 100 [facility], [address] [facility], [place], [address], [facility] - [facility] 11/23/2024 09:43:57 10/16/19 25 Allergy Testing-Full completed PHUONG HUDSON 100 [facility], [address] [facility], [place], [address], [facility] - [facility] 10/16/2024 10:11:58 10/13/20 24 Allergy Testing Modified- Quantitative Testing (MQT) Only completed PHUONG HUDSON 100 [facility],[address], [place], [address], [facility] - [facility] 10/13/2024 10:01:03 09/07/20 24 Air & Speech Audio with Tymps - [id number], [address] & [address] completed Aisha Weinberg [place] [facility] 09/07/2024 13:28:10 Tonsillectomy completed Osbaldo Hastings [place] [facility] 09/07/2024 13:39:08 Imaging Results None recorded. [...] Available Not Available No t Available Vitals Date Recorded Body height Body mass index (BMI) Body weight Provider Name and Address Organization Details Last Updated DateTime 07/07/2025 157.48 cm 37.9 kg/m2 17376.62 g Maribell Florence [place] [facility] 07/07/2025 09:34:59 Social History None recorded. Functional Status None [...] ICD10 Code Diagnosis IMO Codes Diagnosis Note [id number] BETSEY ABREU RN Allergy [address] [place] [address] 06/10/2025 09:03:06 06/10/2025 09:22:18 Perennial allergic rhinitis 291287260 J30.89 64523 DUC COLES MD [facility] [address] [place] [address] 06/16/2025 08:55:00 06/16/2025 09:22:56 Allergic rhinitis 87891999 J30.89 0064913219 Bleeding from nose 11447 6005 R04.0 2558 Obstructiv e sleep apnea syndrome 82390645 G47.33 5880999 48338 BETSEY ABREU RN Allergy [address] [place] [address] 06/16/2025 09:24:26 06/16/2025 09:56:32 Perennial allergic rhinitis 614133376 J30.89 28682 LELO COLBERT [facility] [address] [place] [address] 06/24/2025 09:34:40 06/24/2025 13:03:57 Perennial allergic rhinitis 837455272 J30.89 93611 EDDIE HAGAN [facility] [address] [address] 07/07/2025 09:27:00 07/07/2025 09:55:38 Allergic rhinitis 06487630 J30.89 1513262810 Bleeding from nose 95109 6005 R04.0 2558 Obstructiv e sleep apnea syndrome 68258294 G47.33 0552650 Continue therapy with humidifica tion setting. 68704 PHUONG HUDSON [facility] [address] [place] [address] 07/07/2025 09:55:48 07/07/2025 10:10:48 Perennial allergic rhinitis 579793900 J30.89 Health Concerns Section Related Observation LastModified by Organization Detai ls LastModified Time None Recorded Concern Status LastModified by Organization Details LastModified Time None Recorded Payers Encounter Date Sequence Insurance Name Policy Number Policy [place] Covered Member ID [place] Member ID Guarantor Name 07/07/2025 1 [place] [id number] Gian Nair [id number] Gian Nair Notes Date Note Type Note Provider Name and Address Organization Details Recorded Time 07/07/2025 text/html ROS as noted in the HPI 29-year-old female, with history of VICKIE on CPAP therapy, presents for reevaluation of epistaxis. Patient was seen by Dr. Vaz at the previous visit and had Surgicel placed in the left naris. She states the packing fell out later the same day. However, her nosebleeds have become less frequent and now occur 2-3 times a week as opposed to daily after following the pamphlet instructions. Last episode was a couple days ago. DUC VAZ MD [address] [place] [address], [place], [address], [facility] - [facility] 07/07/2025 13:54:33 OBGyn Episode No OBEpisode recorded.
--- OUTSIDE RECORDS SUMMARY | 2025-08-23 16:48 | XMS_ITS | Encounter Summary ---
Author Organization [employer] Address [address] [facility] [address] [place] [address] Care Team Providers Care Table Inspector Name Role Phone Jeanette Mohan [facility] Primary Care Provider [phone] Encounter Details Date Type Department Care Team (Late st Contact Info) Description 08/07/2023 Abstract [facility] MEDICINE [address] [place], [place] [phone] Cassel, Jeanette [facility] [address] [place], [place] [phone] Social History Tobacco Use Types Packs/Day Years Used Date Smoking Tobacco: Former Cigarettes Passive Smoke Exposure: Never Smokeless Tobacco: Never Alcohol Use Standard Drinks/Week Comments Yes 1 (1 standard drink = 0.6 oz pur e alcohol) Depression Answer Date Recorded Patient Health Questionnaire-9 Score 0 02/19/2023 Housing Stability Answer Date Recorded What is your housing situation today? I have ladan kimbrough 08/05/[address] you li ve. Do you have problems with any of the following? None of the above 08/05/2023 Food Insecurity Answer Date Recorded Within the past 12 months, y ou worried that your food would run out before you got money to buy more: Never True 08/05/2023 Within the past 12 months,th e food you bought just didn't last and you didn't have enough money to get more: Never True Transportation Answer Date Recorded In the past 12 months, has l ack of transportation kept you from medical appts, meetings, work or from getting things needed for daily living? No 08/05/2023 Utilities Answer Date Recorded In the past 12 months, has t he electric, gas, oil or water company threatened to shut off services in your home? No 08/05/2023 Depression Answer Date Recorded Patient Health Questionnaire-2 [...] Description 08/30/2025 10:30 AM EST Clinical Support [facility] MED[facility] [address] [place] [address] 09/27/2025 9:00 AM EST Office Visit [facility] MEDICINE [address] [place] [address] Jeanette Mohan FNP [address] [place] [address] 09/28/2025 2:00 PM EST Office Visit [facility] ADULT DENTAL [address] [place] [address] Corina, Azra [address] [place] [address] documented as of this encounter Visit Diagnoses Not on filedocumented in this encounter Additional Health Concerns Assessment Noted Time PHQ-9 Depression Total Score: 0 02/20/20 23 10:42 AM EDT documented as of this encounter Care Teams Table Inspector Relationship Specialty Start Date End Date Jeanette Mohan FNP [address] [place] [id number] PCP - General Family Medicine 01/26/22 documented as of this encounter
--- OUTSIDE RECORDS SUMMARY | 2025-08-23 16:48 | XMS_ITS | Continuity of Care Document ---
Author Organization [facility] - [facility], [facility] Address [address] [place] [address] Care Team Providers Care Technician Support Association Name Role Phone CELINA GARAY Primary Care Provider NAMEREYMUNDO Primary Care Provider Assessment Encounter Date Assessment Date Assessment LastModified by Organization Details LastModified Time 06/16/2025 06/16/2025 Assessment: - Daily nosebleeds, left-sided nasal irritation. - Sleep apnea. Plan: The patient was counseled on proper technique for using nasal sprays to avoid irritation of the septum. Dissolvable Surgicel packing was placed in the left nostril to address the irritation and bleeding. The patient was advised that the packing might fall out but should help reduce symptoms. She was instructed to return in a couple of weeks for follow-up with a PA to assess improvement. If symptoms persist, cauterization of the affected area will be considered. The patient was educated on using KY jelly as a cost-effective alternative to her current water-based lubricant for nasal lubrication. Recommendations were made to ensure proper humidification settings on her CPAP machine to minimize nasal irritation. Follow-up was scheduled in two weeks. Procedure Documentation: Placement of dissolvable Surgicel packing in the left nostril. [email or web address] Not available 06/16/2025 09:19:10 Plan of Treatment Reminders Order Date Submit Date Provider Last Modified By Organization Details Last Modified Time Details Appointments [facility]up 6mon 2025 09:00A M EDDIE HAGAN Not available Not available Not available Lab None recorded . Referral None recorded . Procedures None recorded . Surgeries None recorded . Imaging None recorded . Medication Orders None recorded . Patient TargetsNo targets recorded. Patient Instructions Encounter Date Encounter Id Patient Instructions Last Modified By Organization Details Last Modified Time 06/16/2025 [id number] Return in two weeks for follow-up with a PA. Use KY jelly for nasal lubrication. Adjust CPAP humidification settings to minimize nasal irritation. Monitor for improvement in symptoms and report any worsening. [email or web address] Not available 06/16/2025 09:18:26 Please note: Parts of this encounter note have been generated by AI based on audio conversation. Patient consent was required prior to utilizing this technology. Content review was required prior to finalizing the note. [email or web address] Not available 06/16/2025 09:18:26 Reason for Referral None Reported. Problems Name Problem SNOMED Code Status Onset Date Resolution Date Notes Provider Name and Address Organization Details Recorded Time Abnormal auditory perception 90882231 Active 2023 Aisha narvaez [place] - [facility] 4 13:28:19 Allergic rhinitis 80963150 Active 2023 DUC WILSON MD [address] [address], [place], [address], [facility] - [facility] 5 09:17:57 Seasonal allergic rhinitis 676873936 Active 2023 Mariana narvaez [place] - [facility] [place] 4 13:45:35 Non-allergi c rhinitis 113022089367 Active 2023 Mariana narvaez [place] - [facility] [place] 4 13:45:35 Feeling of lump in throat 993226983 Active 2023 Mariana narvaez [place] - [facility] [place] 4 16:11:03 Perennial allergic rhinitis 576248751 Active 2024 Isaak Peters [address] [address], [place], [address], [facility] - [facility] 5 09:13:18 Bleeding from nose 510887731 Active 2024 OLVIN SEGURA MD [address] [place] [address], [place], [address], [place] - [facility] [place] 5 08:44:48 Allergic rhinitis caused by pollen 46875145 Active 2024 OLVIN SEGURA MD [address] [facility], [facility] [place], [address], [place] - [facility] [place] 5 08:44:59 Dysfunction of left eustachian tube 5971834204591 106 Active 2024 OLVIN SEGURA MD [address] [facility] [address], [facility] [place], [address], [place] - [facility] [place] 5 08:45:10 Obstructive sleep apnea syndrome 53804049 Active 2024 DUC WILSON MD [address] [facility] [address], [facility] [place], [address], [place] - [facility] [place] 09:18:42 Problem Notes None recorded. Procedures Surgical History Date Name Laterality Status Provider Name and Address Organization Details Recorded Time 08/05/20 25 Allergy Immunotherapy Injections completed GLORIA DICKSON [facility] 100 [facility],[address], [address], [facility] - [facility] 08/05/2025 09:50:43 07/23/20 25 Allergy Immunotherapy Injections completed Isaak Peters [address] [facility],[address] [place] [address], [address], [place] - [facility] 07/23/2025 09:14:00 07/07/20 25 Allergy Immunotherapy Injections completed LELO COLBERT [facility] [address] [facility],[address] [facility], [place], [address], [place] - [facility] [place] 07/07/2025 10:10:21 06/24/20 25 Allergy Immunotherapy Injections completed GLORIA DICKSON [facility] [address] [facility] [address] [address] [place] [address], [address], [facility] - [facility] [place] 06/24/2025 13:03:20 06/16/20 25 Allergy Immunotherapy Injections completed Isaak Peters 100 [facility],[address], [address], [place] - [facility] [place] 06/16/2025 09:56:04 06/16/20 25 Epistaxis Simple Nasal Cautery Left completed DUC VAZ MD [address],IM[address] [facility], [place], [address], [place] - [facility] [place] 06/16/2025 09:17:51 06/10/20 25 Allergy Immunotherapy Injections completed Isaak Peters [address] [facility] [address], [place], [address], [place] - [facility] [place] 06/10/2025 09:21:19 06/01/20 25 Allergy Immunotherapy Injections completed PHUONG HUDSON [address] [facility],[address] [place] [address], [address], [place] - [facility] [place] 06/01/2025 11:31:08 05/13/20 25 Allergy Immunotherapy Injections completed PHUONG OROPEZA [address] [place] [address], [address], [place] - [facility] [place] 05/13/2025 11:09:40 04/30/20 25 Allergy Immunotherapy Injections completed BETSEY ABREU RN [address] [facility],[address] [place] [address], [address], [place] - [facility] [place] 04/30/2025 09:18:48 04/14/20 25 Allergy Immunotherapy Injections completed PHUONG OROPEZA [address] [place] [address], [address], [place] - [facility] [place] 04/14/2025 10:16:59 04/09/20 25 Allergy Immunotherapy Injections completed PHUONG HUDSON [address] [facility] [address] [facility] [address] [place] [address], [address], [place] [facility] [place] 04/09/2025 12:14:36 03/19/20 25 Allergy Immunotherapy Injections completed BETSEY ABREU RN [address] [facility] [address], [address], [place] [facility] [place] 03/19/2025 09:21:37 03/05/20 25 Allergy Immunotherapy Injections completed LELO FILEMON, RMA [address], [place], [address], [place] [facility] [place] 03/05/2025 11:22:37 02/13/20 25 Allergy Immunotherapy Injections completed BETSEY ABREU RN [address] [facility] [address], [place], [address], [place] [facility] [place] 02/12/2025 09:59:36 02/06/20 25 Allergy Immunotherapy Injections completed BETSEY ABREU RN [address], [place], [address], [place] [facility] [place] 02/05/2025 10:59:03 01/23/20 25 Allergy Immunotherapy Injections completed PHUONG HUDSON [address] [facility] [address] [address] [place] [address], [address], [place] [facility] [place] 01/22/2025 09:10:11 01/14/20 25 Allergy Immunotherapy Injections completed PHUONG HUDSON [address] [facility],[address] [place] [address], [address], [place] [facility] [place] 01/13/2025 10:43:27 01/02/20 25 Allergy Immunotherapy Injections completed GLORIA DICKSON RMElissa [address] [facility] [address] [place] [address], [address], [place] [facility] [place] 01/01/2025 09:41:22 12/19/19 25 Allergy Immunotherapy Injections completed PHUONG HUDSON [address] [facility],[address] [place] [address], [address], [place] [facility] [place] 12/18/2024 09:51:23 12/11/19 25 Allergy Immunotherapy Injections completed BETSEY ABREU RN [address] [facility] [address] [facility], [place], [address], [place] [facility] [place] 12/11/2024 09:18:09 12/04/19 25 Allergy Immunotherapy Injections completed GLORIA DICKSON RMElissa [address], [place], [address], [place] [facility] [place] 12/04/2024 13:23:39 11/23/19 25 Allergy Immunotherapy Injections completed GLORIA KORZEC, RMA [address], [place], [address], [facility] - [facility] 11/23/2024 09:43:57 10/16/19 25 Allergy Testing-Full completed LELO COLBERT, A [address] [facility] [address], [place], [address], [facility] - [facility] 10/16/2024 10:11:58 10/13/20 24 Allergy Testing Modified- Quantitative Testing (MQT) Only completed LELO FILEMON, [facility] [address] [facility] [address], [place], [address], [facility] - [facility] 10/13/2024 10:01:03 09/07/20 24 Air & Speech Audio with Tymps - [id number], 89714 & 73922 completed Aisha Weinberg [place] - [facility] 09/07/2024 13:28:10 Tonsillectomy completed Osbaldo Hastings [place] - [facility] 09/07/2024 13:39:08 Imaging Results None recorded. [...] INTO EACH NOSTRIL IN THE MORNING SHAKE GENTLY/[place] BEFORE 1ST USE&CLEAN TIP active Not [...] ICD10 Code Diagnosis IMO Codes Diagnosis Note [id number] PHUONG HUDSON Allergy [address] [place] [address] 06/01/2025 11:16:35 06/01/2025 11:31:26 Perennial allergic rhinitis 289308394 J30.89 [id number] BETSEY ABREU RN Allergy [address] [place] [address] 06/10/2025 09:03:06 06/10/2025 09:22:18 Perennial allergic rhinitis 912222463 J30.89 [id number] DUC COLES MD [facility] [address] [address] 06/16/2025 08:55:00 06/16/2025 09:22:56 Allergic rhinitis 36305325 J30.89 7069318286 Bleeding from nose 26432 6005 R04.0 2558 Obstructiv e sleep apnea syndrome 95681767 G47.33 [id number] BETSEY ABREU RN Allergy [address] [place] [address] 06/16/2025 09:24:26 06/16/2025 09:56:32 Perennial allergic rhinitis 126518112 J30.89 Health Concerns Section Related Observation LastModified by Organization Detai ls LastModified Time None Recorded Concern Status LastModified by Organization Details LastModified Time None Recorded Payers Encounter Date Sequence Insurance Name Policy Number Policy [place]itting[place] Covered Member ID [place]itting[place] Member ID Guarantor Name 06/16/2025 1 MEDICAID-[place]: [facility] Gian Nair [id number] Gian Nair Notes Date Note Type Note Provider Name and Address Organization Details Recorded Time 06/16/2025 text/html Gian Nair is a 29-year-old female who presents for left-sided nasal symptoms. She reports experiencing daily nosebleeds, which began several months ago and have persisted despite discontinuing nasal sprays as recommended by a previous provider. She notes that the nosebleeds typically last five to ten minutes and require her to shower to stop the bleeding. She also reports difficulty using her CPAP machine due to exacerbation of nosebleeds. She has been using saline solution, water-based lubricant, and a cool mist humidifier as suggested, but the symptoms have not improved. She has a history of sleep apnea and has been unable to use her CPAP machine effectively due to her nasal symptoms. She denies recent use of Flonase or Astolin sprays due to irritation and bleeding. She has been taking cetirizine for allergies. DUC VAZ MD [address] [place] [address], [address], [facility] - [facility] 06/16/2025 09:20:32 OBGyn Episode No OBEpisode recorded.
--- OUTSIDE RECORDS SUMMARY | 2025-08-23 16:48 | XMS_ITS | Encounter Summary ---
Author Organization [employer] Address [address] [place] [address] [address] [place] [address] Care Team Providers Care Clinical Research Manager Name Role Phone Jeanette Mohan MANUAL [employer]S THERAPIST Primary Care Provider [phone] Encounter Details Date Type Department Care Team ([facility] Contact Info) Description 2022 Abstract [facility] [address] [place], [place] [phone] Agustin Krishnan DDS [address] [place] [address] Social History Tobacco Use Types Packs/Day Years Used Date Smoking Tobacco: Never Passive Smoke Exposure: Never Smokeless Tobacco: Never Alcohol Use Standard Drinks/Week Comments Yes 1 (1 standard drink = 0.6 oz pur e alcohol) Comments Unknown Sex and Gender Information Value Date Recorded Sex Assigned at Female 08/13/2022 10:40 AM EDT Legal Sex Female 10:40 AM EDT Gender Identity Female 08/13/2022 10:40 AM EDT Sexual Orientation Straight 08/13/2022 10 :40 AM EDT COVID-19 Exposure Response Date Recorded In the last 10 days, have yo u been in contact with someone who was confirmed or suspected to have Coronavirus/COVID-19? No / Unsure 11/29/2022 9:46 AM EST documented as of this encounter Plan of Treatment Upcoming Encounters Date Type Department Care Team ([facility] Contact Info) Description 08/30/2025 10:30 AM EST Clinical Support [facility] MED[facility] [address] [place] [phone] 09/27/2025 9:00 AM EST Office Visit [facility] [address] [place] [address] Jeanette Mohan [facility] [address] [place] [address] 09/28/2025 2:00 PM EST Office Visit [facility] ADULT [facility] [address] [place], [place] [phone] Azra Arriaga [address] [place] [address] documented as of this encounter Visit Diagnoses Not on filedocumented in this encounter Care Teams Clinical Research Manager Relationship Specialty Start Date End Date Jeanette Mohan [facility] [address] [place] [address] PCP - General Family Medicine 01/26/22 documented as of this encounter
--- OUTSIDE RECORDS SUMMARY | 2025-08-23 16:48 | XMS_ITS | Continuity of Care Document ---
Author Organization [place] - [facility], Allergy Address [address] [place] [address] Care Team Providers Care Talent Acquisition Manager Name Role Phone TANISHA CELINA Primary Care Provider NAME, REYMUNDO Primary Care Provider [phone] Assessment Encounter Date Assessment Date Assessment LastModified by Organization Details LastModified Time 06/24/2025 06/24/2025 Visit With: Ayla Colbert Use of Antihistamine s: No If yes: Vial Test Change in medications: No If yes Increase in asthma symptoms If yes, inhaler use: Reaction to last injections: No If yes: Allergy Symptoms: Other: Missed: Dose Aware of Vial Test Aware: Notes: [email or web address] Not available 06/24/2025 13:03:27 Plan of Treatment Reminders Order Date Submit Date Provider Last Modified By Organization Details Last Modified Time Details Appointments [facility]- Allergy f-up 6mon 2025 09:00A M [...] Organization Details Recorded Time Abnormal auditory perception 59929272 Active 2023 Aisha narvaez [place] - [facility] 13:28:19 Allergic rhinitis 30624789 Active 2023 DUC WILSON MD [address] [address], [place], [address] [place] [address] - [facility] 5 09:17:57 Seasonal allergic rhinitis 114375758 Active 2023 Mariana Morrisonchen null, [place] - [facility] 4 13:45:35 Non-allergi c rhinitis 649229025022 Active 2023 Mariana Morrisonchen null, [place] - [facility] 4 13:45:35 Feeling of lump in throat 080121367 Active 2023 Mariana Costello null, [place] - [facility] 4 16:11:03 Perennial allergic rhinitis 783587175 Active 2024 Isaak Peters [address] [address], [place], [address], [facility] - [facility] 5 09:13:18 Bleeding from nose 205731332 Active 2024 OLVIN SEGURA MD [address] [place] [address], [place], [address], [facility] - [facility] 5 08:44:48 Allergic rhinitis caused by pollen 37105250 Active 2024 OLVIN SEGURA MD [address] [place] [address], [place], [address], [facility] - [facility] 5 08:44:59 Dysfunction of left eustachian tube 9257615409412 106 Active 2024 OLVIN SEGURA MD [address] [place] [address], [place], [address], [facility] - [facility] 5 08:45:10 Obstructive sleep apnea syndrome 52283554 Active 2024 DUC WILSON MD [address] [place] [address], [place], [address], [facility] - [facility] 5 09:18:42 Problem Notes None recorded. Procedures Surgical History Date Name Laterality Status Provider Name and Address Organization Details Recorded Time 08/05/20 Allergy Immunotherapy Injections completed GLORIA KORZEC, RMA [address], [place], [address], [place] - [facility] 08/05/2025 09:50:43 07/23/20 25 Allergy Immunotherapy Injections completed Isaak Peters [address], [place], [address], [facility] - [facility] 07/23/2025 09:14:00 07/07/20 25 Allergy Immunotherapy Injections completed JANNETTE HUDSONA [address], [place], [address], [facility] - [facility] 07/07/2025 10:10:21 06/24/20 25 Allergy Immunotherapy Injections completed GLORIA DICKSON, RMA [address], [place], [address], [place] - [facility] 06/24/2025 13:03:20 06/16/20 25 Allergy Immunotherapy Injections completed Isaak Peters [address] [facility] [place],[address] [facility], [place], [address], [place] - [facility] 06/16/2025 09:56:04 06/16/20 25 Epistaxis Simple Nasal Cautery Left completed DUC VAZ MD [address] [facility] [place],[address] [place] [address], [address], [facility] - [facility] 06/16/2025 09:17:51 06/10/20 25 Allergy Immunotherapy Injections completed Isaak Peters [address] [facility] [place], [address], [facility] - [facility] 06/10/2025 09:21:19 06/01/20 25 Allergy Immunotherapy Injections completed AYLA COLBERT RMA [address], [address], [place] - [facility] 06/01/2025 11:31:08 05/13/20 25 Allergy Immunotherapy Injections completed GLORIA DICKSON RMA [address], [place], [address], [place] [facility] 05/13/2025 11:09:40 04/30/20 25 Allergy Immunotherapy Injections completed BETSEY ABREU RN [address], [place], [address], [place] [facility] 04/30/2025 09:18:48 04/14/20 25 Allergy Immunotherapy Injections completed PHUONG OROPEZA [address], [address], [place] [facility] 04/14/2025 10:16:59 04/09/20 25 Allergy Immunotherapy Injections completed PHUONG HUDSON [address], [address], [place] [facility] 04/09/2025 12:14:36 03/19/20 25 Allergy Immunotherapy Injections completed BETSEY ABREU RN [address] [place] [address], [address], [place] - [facility] 03/19/2025 09:21:37 03/05/20 25 Allergy Immunotherapy Injections completed PHUONG HUDSON [address] [place] [address], [address], [place] [facility] 03/05/2025 11:22:37 02/13/20 25 Allergy Immunotherapy Injections completed BETSEY ABREU RN [address] [place] [address], [address], [place] [facility] 02/12/2025 09:59:36 02/06/20 25 Allergy Immunotherapy Injections completed BETSEY ABREU RN [address] [facility] [place],[address] [place] [address], [address], [place] [facility] 02/05/2025 10:59:03 01/23/20 25 Allergy Immunotherapy Injections completed PHUONG HUDSON [address], [address], [place] [facility] 01/22/2025 09:10:11 01/14/20 25 Allergy Immunotherapy Injections completed PHUONG HUDSON [address], [address], [place] [facility] 01/13/2025 10:43:27 01/02/20 25 Allergy Immunotherapy Injections completed GLORIA DICKSON, RMA [address], [place], [address], [facility] - [facility] 01/01/2025 09:41:22 12/19/19 25 Allergy Immunotherapy Injections completed PHUONG HUDSON [address], [place], [address], [facility] - [facility] 12/18/2024 09:51:23 12/11/19 25 Allergy Immunotherapy Injections completed BETSEY ABREU RN [address], [place], [address], [facility] - [facility] 12/11/2024 09:18:09 12/04/19 25 Allergy Immunotherapy Injections completed GLORIA DICKSON, RMA [address] [facility] [place],[address] [facility], [place], [address], [facility] - [facility] 12/04/2024 13:23:39 11/23/19 25 Allergy Immunotherapy Injections completed GLORIA DICKSON, [facility] [address] [facility] [place],[address] [place] [address], [address], [facility] - [facility] 11/23/2024 09:43:57 10/16/19 25 Allergy Testing-Full completed PHUONG HUDSON [address] [facility] [place],[address] [facility], [place], [address], [facility] - [facility] 10/16/2024 10:11:58 10/13/20 24 Allergy Testing Modified- Quantitative Testing (MQT) Only completed PHUONG HUDSON 100 [facility],[address], [place], [address], [facility] - [facility] 10/13/2024 10:01:03 09/07/20 24 Air & Speech Audio with Tymps - 40236, 524[address] & 33200 completed Aisha Weinberg [place] - [facility] 09/07/2024 13:28:10 Tonsillectomy completed Osbaldo Hastings [place] - [facility] 09/07/2024 13:39:08 Imaging Results None recorded. [...] INTO EACH NOSTRIL IN THE MORNING SHAKE GENTLY/MO [place]ISON BEFORE 1ST USE&CLEAN TIP active Not [...] ICD10 Code Diagnosis IMO Codes Diagnosis Note [id number] PHUONG HUDSON Allergy [address] [place] [address] [place] [address] 06/01/2025 11:16:35 06/01/2025 11:31:26 Perennial allergic rhinitis 271348179 J30.89 94204 BETSEY ABREU RN Allergy [address] [place] [address] [place] [address] 06/10/2025 09:03:06 06/10/2025 09:22:18 Perennial allergic rhinitis 184791162 J30.89 43489 DUC COLES MD [facility] [place] [address] [place] [address] 06/16/2025 08:55:00 06/16/2025 09:22:56 Allergic rhinitis 78802833 J30.89 8090168723 Bleeding from nose 23053 6005 R04.0 2558 Obstructiv e sleep apnea syndrome 84154594 G47.33 [id number] BETSEY ABREU RN Allergy [address] [place] [address] 100 [facility] [place] [address] 06/16/2025 09:24:26 06/16/2025 09:56:32 Perennial allergic rhinitis 048489253 J30.89 80169 PHUONG HUDSON Allergy 100 [facility] 100 [place] [address] 06/24/2025 09:34:40 06/24/2025 13:03:57 Perennial allergic rhinitis 477898600 J30.89 Health Concerns Section Related Observation LastModified by Organization Detai ls LastModified Time None Recorded Concern Status LastModified by Organization Details LastModified Time None Recorded Payers Encounter Date Sequence Insurance Name Policy Number Policy Whittington Covered Member ID Whittington Member ID Guarantor Name 06/24/2025 1 [place] [facility] Gian Nair [id number] Gian Nair OBGyn Episode No OBEpisode recorded.
--- OUTSIDE RECORDS SUMMARY | 2025-08-23 16:48 | XMS_ITS | Continuity of Care Document ---
Author Organization [place] - [facility], Allergy Address [address] [place] [address] Care Team Providers Care Hydrostatic Tubing Tester Name Role Phone [facility] Primary Care Provider NAME, REYMUNDO Primary Care Provider Assessment Encounter Date Assessment Date Assessment LastModified by Organization Details LastModified Time 06/10/2025 06/10/2025 Visit With: Isaak Peters [place] Use of Antihistamine s: No If yes: Vial Test Change in medications: No If yes Increase in asthma symptoms No If yes, inhaler use: Reaction to last injections: No If yes: Allergy Symptoms: Other: Missed: Dose Aware of Vial Test Aware: Notes: [email or web address] Not available 06/10/2025 09:21:27 Plan of Treatment Reminders Order Date Submit Date Provider Last Modified By Organization Details Last Modified Time Details Appointments [facility]- Allergy f-up 6mon 2025 09:00A M [...] Organization Details Recorded Time Abnormal auditory perception 11868080 Active 2023 Aisha narvaez [place] - [facility] 13:28:19 Allergic rhinitis 41981693 Active 2023 DUC WILSON MD 100 [facility] [place] [address], [place], [address] [place] [address] - [facility] 5 09:17:57 Seasonal allergic rhinitis 613334944 Active 2023 [facility] null, [place] - [facility] 4 13:45:35 Non-allergi c rhinitis 219871814257 Active 2023 [facility] [place] - [facility] 4 13:45:35 Feeling of lump in throat 193654364 Active 2023 [facility] null, [place] - [facility] 4 16:11:03 Perennial allergic rhinitis 927958689 Active 2024 Isaak Peters [address] [address], [place], [address], [facility] - [facility] 5 09:13:18 Bleeding from nose 553548459 Active 2024 OLVIN SEGURA MD [address] [place] [address], [place], [address], [facility] - [facility] 5 08:44:48 Allergic rhinitis caused by pollen 71395140 Active 2024 OLVIN SEGURA MD [address] [place] [address], [facility] [place], [address], [facility] - [facility] 5 08:44:59 Dysfunction of left eustachian tube 4344295385789 106 Active 2024 OLVIN SEGURA MD [address] [place] [address], [place], [address], [facility] - [facility] 5 08:45:10 Obstructive sleep apnea syndrome 46830054 Active 2024 DUC WILSON MD [address] [place] [address], [place], [address], [facility] - [facility] 5 09:18:42 Problem Notes None recorded. Procedures Surgical History Date Name Laterality Status Provider Name and Address Organization Details Recorded Time 10/23/20 25 Allergy Immunotherapy Injections completed GLORIA KORZEC, RMA [address], [place], [address], [place] - [facility] 08/05/2025 09:50:43 07/23/20 25 Allergy Immunotherapy Injections completed Isaak Peters [address], [place], [address], [place] - [facility] 07/23/2025 09:14:00 07/07/20 25 Allergy Immunotherapy Injections completed JANNETTE HUDSONA [address], [place], [address], [place] [facility] 07/07/2025 10:10:21 06/24/20 25 Allergy Immunotherapy Injections completed GLORIA DICKSON, RMA [address], [place], [address], [place] [facility] 06/24/2025 13:03:20 06/16/20 25 Allergy Immunotherapy Injections completed Isaak Peters [address] [facility] [address], [place], [address], [place] [facility] 06/16/2025 09:56:04 06/16/20 25 Epistaxis Simple Nasal Cautery Left completed DUC VAZ MD [address] [place] [address], [address], [place] - [facility] 06/16/2025 09:17:51 06/10/20 25 Allergy Immunotherapy Injections completed Isaak Peters [address] [facility] [address], [place], [address], [facility] - [facility] 06/10/2025 09:21:19 06/01/20 25 Allergy Immunotherapy Injections completed LELO COLBERT RMA [address], [place], [address], [place] [facility] 06/01/2025 11:31:08 05/13/20 25 Allergy Immunotherapy Injections completed GLORIA DICKSON, RMA [address], [place], [address], [place] [facility] 05/13/2025 11:09:40 04/30/20 25 Allergy Immunotherapy Injections completed BETSEY ABREU RN [address], [place], [address], [place] [facility] 04/30/2025 09:18:48 04/14/20 25 Allergy Immunotherapy Injections completed PHUONG OROPEZA [address], [place], [address], [place] [facility] 04/14/2025 10:16:59 04/09/20 25 Allergy Immunotherapy Injections completed PHUONG HUDSON [address], [place], [address], [place] [facility] 04/09/2025 12:14:36 03/19/20 25 Allergy Immunotherapy Injections completed BETSEY ABREU RN [address] [place] [address], [address], [place] [facility] 03/19/2025 09:21:37 03/05/20 25 Allergy Immunotherapy Injections completed PHUONG HUDSON [address] [place] [address], [address], [place] [facility] 03/05/2025 11:22:37 02/13/20 25 Allergy Immunotherapy Injections completed BETSEY ABREU RN [address] [place] [address], [address], [place] [facility] 02/12/2025 09:59:36 02/06/20 25 Allergy Immunotherapy Injections completed BETSEY ABREU RN [address] [facility],[address] [place] [address], [address], [place] [facility] 02/05/2025 10:59:03 01/23/20 25 Allergy Immunotherapy Injections completed PHUONG HUDSON [address], [place], [address], [place] [facility] 01/22/2025 09:10:11 01/14/20 25 Allergy Immunotherapy Injections completed PHUONG HUDSON [address], [place], [address], [place] [facility] 01/13/2025 10:43:27 01/02/20 25 Allergy Immunotherapy Injections completed GLORIA DICKSON, RMA [address], [place], [address], [facility] - [facility] 01/01/2025 09:41:22 12/19/19 25 Allergy Immunotherapy Injections completed PHUONG HUDSON [address], [place], [address], [facility] - [facility] 12/18/2024 09:51:23 12/11/19 25 Allergy Immunotherapy Injections completed BETSEY ABREU RN [address], [place], [address], [facility] - [facility] 12/11/2024 09:18:09 12/04/19 25 Allergy Immunotherapy Injections completed GLORIA DICKSON, RMA [address] [facility], [place], [address], [facility] - [facility] 12/04/2024 13:23:39 11/23/19 25 Allergy Immunotherapy Injections completed GLORIA DICKSON, [facility] [address] [facility], [place], [address], [facility] - [facility] 11/23/2024 09:43:57 10/16/19 25 Allergy Testing-Full completed PHUONG HUDSON [address] [facility] [address] [facility], [place], [address], [facility] - [facility] 10/16/2024 10:11:58 10/13/20 24 Allergy Testing Modified- Quantitative Testing (MQT) Only completed PHUONG HUDSON 100 [facility],[address], [place], [address], [facility] - [facility] 10/13/2024 10:01:03 09/07/20 24 Air & Speech Audio with Tymps - 56535, 48738 & 32335 completed Aisha Weibnerg [place] - [facility] 09/07/2024 13:28:10 Tonsillectomy completed Osbaldo Hastings [place] - [facility] 09/07/2024 13:39:08 Imaging Results None recorded. Procedure [...] ICD10 Code Diagnosis IMO Codes Diagnosis Note [id number] PHUONG OROPEZA Allergy 100 [facility], [address] 100 [place] [address] 05/13/2025 10:25:18 05/13/2025 11:10:41 Perennial allergic rhinitis 922753642 J30.89 Patient presents to begin immunother apy injections . Reviewed injection hours, importance of compliance and of reporting any changes in medication s. Also reviewed importance of reporting any local reactions to immunother apy injections . For patients of child bearing age, reviewed importance of reporting . Follow up with MD made in 6 months. [id number] PHUONG HUDSON Allergy 100 [facility] [address] 100 [place] [address] 06/01/2025 11:16:35 06/01/2025 11:31:26 Perennial allergic rhinitis 890927391 J30.89 95855 BETSEY ABREU RN Allergy [address] [place] [address] 100 [facility] [place] [address] 06/10/2025 09:03:06 06/10/2025 09:22:18 Perennial allergic rhinitis 585002487 J30.89 Health Concerns Section Related Observation LastModified by Organization Detai ls LastModified Time None Recorded Concern Status LastModified by Organization Details LastModified Time None Recorded Payers Encounter Date Sequence Insurance Name Policy Number Policy Whittington Covered Member ID Whittington Member ID Guarantor Name 06/10/2025 1 [place] [facility] Gian Nair [id number] Gian Nair OBGyn Episode No OBEpisode recorded.
--- OUTSIDE RECORDS SUMMARY | 2025-08-23 16:49 | XMS_ITS | Encounter Summary ---
Author Organization [employer] Address [address] [facility] 7[address] [place] [address] Care Team Providers Care Building Equipment Inspector Name Role Phone [place] Primary Care Provider [phone] Encounter Details Date Type Department Care Team (Late st Contact Info) Description 01/14/2025 Orders Only [facility] MED[facility] [address] [place], [place] [phone] [place] [facility] [address] [place] [address] Nodule of skin of left lower extremity Social History Tobacco Use Types Packs/Day Years [...] Description 08/30/2025 10:30 AM EST Clinical Support [facility] [address] [place] [address] 09/27/2025 9:00 AM EST Office Visit [facility] [address] [place] [address] Jeanette Mohan FNP [address] [place] [phone] 09/28/2025 2:00 PM EST Office Visit [facility] ADULT DENTAL [address] [place] [address] Corina, Azra [address] [place] [address] documented as of this encounter Procedures Procedure Name Priority Date/Time Associated Diagnosis Comments US LOWER EXTREMITY, SOFT TISSUE LEFT Routine 03/12/2024 Nodule of skin of left lower extremity documented in this encounter Results * US LOWER EXTREMITY, SOFT TISSUE LEFT (03/12/2024) Anatomical Region Laterality Modality Abdomen Ultrasound [facility] IMG US PROCEDURES Final Resul t documented in this encounter Visit Diagnoses Diagnosis Nodule of skin of left lower extremity documented in this encounter Additional Health Concerns Assessment Noted Time PHQ-9 Depression Total Score: 0 03/02/20 24 9:17 AM EDT documented as of this encounter Care Teams Building Equipment Inspector Relationship Specialty Start Date End Date Jeanette Mohan FNP [address] [place] [id number] PCP - General Family Medicine 01/26/22 documented as of this encounter
--- OUTSIDE RECORDS SUMMARY | 2025-08-23 16:49 | XMS_ITS | Continuity of Care Document ---
Author Organization [place] - [facility], Allergy Address [address] [place] [address] Care Team Providers Care Interpreter Deaf Name Role Phone [facility] Primary Care Provider NAMEREYMUNDO Primary Care Provider Assessment Encounter Date Assessment Date Assessment LastModified by Organization Details LastModified Time 08/05/2025 08/05/2025 Visit With: PHUONG Alicea Use of Antihistamine s: No If yes: Vial Test Change in medications: No If yes Increase in asthma symptoms If yes, inhaler use: Reaction to last injections: No If yes: Allergy Symptoms: Other: Missed: 1 week Dose Repeated Aware of Vial Test Aware: Notes: dannie Not available 08/05/2025 09:50:58 Plan of Treatment Reminders Order Date Submit Date Provider Last Modified By Organization Details Last Modified Time Details Appointments [facility]- Allergy f-up 6mon 2025 09:00A M EDDIE [...] Organization Details Recorded Time Abnormal auditory perception 48511992 Active 2023 Aisha narvaez [place] - [facility] 13:28:19 Allergic rhinitis 58924285 Active 2023 DUC WILSON MD 100 [facility], [address], [place], [address] [place] [address] - [facility] [place] 5 09:17:57 Seasonal allergic rhinitis 953805408 Active 2023 Marianathalia Costello null, [place] - [facility] [place] 4 13:45:35 Non-allergi c rhinitis 094944031751 Active 2023 [facility] [facility] [place] 4 13:45:35 Feeling of lump in throat 069284373 Active 2023 [facility] - [facility] [place] 4 16:11:03 Perennial allergic rhinitis 548867670 Active 2024 Isaak Fran [address] [place] [address], [place], [address], [facility] - [facility] [place] 5 09:13:18 Bleeding from nose 787582046 Active 2024 OLVIN SEGURA MD [address] [place] [address], [place], [address], [facility] - [facility] [place] 5 08:44:48 Allergic rhinitis caused by pollen 13222244 Active 2024 OLVIN SEGURA MD [address] [place] [address], [place], [address], [facility] - [facility] [place] 5 08:44:59 Dysfunction of left eustachian tube 9505934189589 106 Active 2024 OLVIN SEGURA MD [address] [place] [address], [place], [address], [facility] - [facility] [place] 5 08:45:10 Obstructive sleep apnea syndrome 02838548 Active 2024 DUC WILSON MD [address] [place] [address], [place], [address], [facility] - [facility] [place] 5 09:18:42 Problem Notes None recorded. Procedures Surgical History Date Name Laterality Status Provider Name and Address Organization Details Recorded Time 10/23/20 25 Allergy Immunotherapy Injections completed GLORIA DICKSON, RMA [address], [place], [address], [place] [facility] [place] 08/05/2025 09:50:43 07/23/20 25 Allergy Immunotherapy Injections completed Isaak Peters [address], [place], [address], [place] [facility] [place] 07/23/2025 09:14:00 07/07/20 25 Allergy Immunotherapy Injections completed LELO COLBERT RMA [address] [facility] [address], [place], [address], [place] [facility] [place] 07/07/2025 10:10:21 06/24/20 25 Allergy Immunotherapy Injections completed GLORIA DICKSON, RMA [address], [place], [address], [place] [facility] [place] 06/24/2025 13:03:20 06/16/20 25 Allergy Immunotherapy Injections completed Isaak Peters [address] [facility] [address], [place], [address], [facility] - [facility] [place] 06/16/2025 09:56:04 06/16/20 25 Epistaxis Simple Nasal Cautery Left completed DUC VAZ MD [address] [facility] [address], [place], [address], [facility] - [facility] [place] 06/16/2025 09:17:51 06/10/20 25 Allergy Immunotherapy Injections completed Isaak Peters [address] [facility] [address] [facility], [place], [address], [facility] - [facility] [place] 06/10/2025 09:21:19 06/01/20 25 Allergy Immunotherapy Injections completed LELO COLBERT RMA [address], [place], [address], [facility] - [facility] [place] 06/01/2025 11:31:08 05/13/20 25 Allergy Immunotherapy Injections completed GLORIA DICKSON, RMA [address], [place], [address], [place] [facility] [place] 05/13/2025 11:09:40 04/30/20 25 Allergy Immunotherapy Injections completed BETSEY ABREU RN [address], [place], [address], [place] [facility] [place] 04/30/2025 09:18:48 04/14/20 25 Allergy Immunotherapy Injections completed GLORIA DICKSON RMElissa [address], [place], [address], [place] [facility] [place] 04/14/2025 10:16:59 04/09/20 25 Allergy Immunotherapy Injections completed PHUONG HUDSON [address], [place], [address], [place] [facility] [place] 04/09/2025 12:14:36 03/19/20 25 Allergy Immunotherapy Injections completed BETSEY ABREU RN [address], [address], [place] [facility] [place] 03/19/2025 09:21:37 03/05/20 25 Allergy Immunotherapy Injections completed PHUONG HUDSON [address] [place] [address], [address], [place] [facility] [place] 03/05/2025 11:22:37 02/13/20 25 Allergy Immunotherapy Injections completed BETSEY ABREU RN [address] [facility] [address],[address] [place] [address], [address], [place] [facility] [place] 02/12/2025 09:59:36 02/06/20 25 Allergy Immunotherapy Injections completed BETSEY ABREU RN [address] [facility] [address],[address] [place] [address], [address], [place] [facility] [place] 02/05/2025 10:59:03 01/23/20 25 Allergy Immunotherapy Injections completed PHUONG HUDSON [address], [address], [place] [facility] [place] 01/22/2025 09:10:11 01/14/20 25 Allergy Immunotherapy Injections completed PHUONG HUDSON [address], [address], [place] [facility] [place] 01/13/2025 10:43:27 01/02/20 25 Allergy Immunotherapy Injections completed GLORIA DICKSON, RMA [address], [place], [address], [facility] - [facility] [place] 01/01/2025 09:41:22 12/19/19 25 Allergy Immunotherapy Injections completed PHUONG HUDSON [address], [place], [address], [facility] - [facility] 12/18/2024 09:51:23 12/11/19 25 Allergy Immunotherapy Injections completed BETSEY ABREU RN [address], [place], [address], [facility] - [facility] 12/11/2024 09:18:09 12/04/19 25 Allergy Immunotherapy Injections completed GLORIA DICKSON, RMA [address] [facility] [address], [place], [address], [facility] - [facility] 12/04/2024 13:23:39 11/23/19 25 Allergy Immunotherapy Injections completed GLORIA DICKSON, RMA [address] [facility], [place], [address], [facility] - [facility] 11/23/2024 09:43:57 10/16/19 25 Allergy Testing-Full completed PHUONG HUDSON [address] [facility], [place], [address], [facility] - [facility] 10/16/2024 10:11:58 10/13/20 24 Allergy Testing Modified- Quantitative Testing (MQT) Only completed PHUONG HUDSON [address] [facility] [address], [place], [address], [facility] - [facility] 10/13/2024 10:01:03 09/07/20 24 Air & Speech Audio with Tymps - 91764, 50597 & 76579 completed Aisha Weinberg [place] - [facility] 09/07/2024 13:28:10 Tonsillectomy completed Osbaldo Hastings [place] - [facility] 09/07/2024 13:39:08 Imaging Results None recorded. [...] INTO EACH NOSTRIL IN THE MORNING SHAKE GENTLY/[place] BEFORE 1ST USE&CLEAN TIP active Not Available [...] ICD10 Code Diagnosis IMO Codes Diagnosis Note [id number] EDDIE HAGAN [facility] of [address] [address] 07/07/2025 09:27:00 07/07/2025 09:55:38 Allergic rhinitis 54785632 J30.89 [id number] Bleeding from nose 70491 6005 R04.0 2558 Obstructiv e sleep apnea syndrome 14094699 G47.33 7768505 Continue therapy with humidifica tion setting. [id number] PHUONG HUDSON Allergy [address] [place] [address] [place] [address] 07/07/2025 09:55:48 07/07/2025 10:10:48 Perennial allergic rhinitis 799457173 J30.89 95403 Isaak Peters Allergy 100 [facility], [address] [place] [address] 07/23/2025 09:06:05 07/23/2025 09:14:15 Perennial allergic rhinitis 024038440 J30.89 33969 GLORIA ANNIAZEC, RMA Allergy [address] [facility] [address] [place] [address] 08/05/2025 09:15:30 08/05/2025 09:51:19 Perennial allergic rhinitis 498084553 J30.89 Health Concerns Section Related Observation LastModified by Organization Detai ls LastModified Time None Recorded Concern Status LastModified by Organization Details LastModified Time None Recorded Payers Encounter Date Sequence Insurance Name Policy Number Policy Whittington Covered Member ID Whittington Member ID Guarantor Name 08/05/2025 1 [place] [facility] Gian Nair [id number] Gian Niar OBGyn Episode No OBEpisode recorded.
--- OUTSIDE RECORDS SUMMARY | 2025-08-23 16:49 | XMS_ITS | Continuity of Care Document ---
Author Organization [place] [facility], [facility] Address [address] [place] [address] Care Team Providers Care Transportation Solutions Manager Name Role Phone CELINA GARAY Primary Care Provider NAMEREYMUNDO Primary Care Provider Assessment Encounter Date Assessment Date Assessment LastModified by Organization Details LastModified Time 07/07/2025 07/07/2025 29-year-old female, with history of VICKIE on CPAP therapy, presents for reevaluation of epistaxis. On anterior rhinoscopy, nasal mucosa appears mildly erythematous with no appreciable blood vessel or source of bleeding that requires cautery in the office today. Recommend continued use of the saline nasal spray at least four times daily, followed by saline gel after every use to help better retain moisture in the nose, in addition to a humidifier at home. If nosebleeds persist despite direct pressure to the base of the nose, patient was instructed to soak a cotton ball with oxymetazoline (Afrin) and insert it into the affected nostril while applying pressure. Patient may return to the office as needed or go to the emergency room if episodes are severe. All questions were answered. [email or web address] Not available 07/07/2025 12:39:36 Plan of Treatment Reminders Order Date Submit Date Provider Last Modified By Organization Details Last Modified Time Details Appointments [facility]- Allergy f-up 6mon 2025 09:00A M [...] Organization Details Recorded Time Abnormal auditory perception 87437604 Active 2023 Aisha narvaez, [place] - [facility] [place] 4 13:28:19 Allergic rhinitis 67508456 Active 2023 DUC WILSON MD 100 [facility],[address], [facility] [place], [address], [facility] - [facility] [place] 5 09:17:57 Seasonal allergic rhinitis 103386072 Active 2023 Mariana narvaez, [place] - [facility] [place] 4 13:45:35 Non-allergi c rhinitis 417513526608 Active 2023 Mariana narvaez, [place] - [facility] [place] 4 13:45:35 Feeling of lump in throat 022419703 Active 2023 Mariana narvaez, [place] - [facility] [place] 4 16:11:03 Perennial allergic rhinitis 100947007 Active 2024 Isaak Peters 100 [facility], [address], [place], [address], [facility] - [facility] [place] 5 09:13:18 Bleeding from nose 522038401 Active 2024 OLVIN SEGURA MD 100 [facility], [address], [place], [address], [facility] - [facility] [place] 5 08:44:48 Allergic rhinitis caused by pollen 13688731 Active 2024 OLVIN SEGURA MD 100 [facility], [address], [place], [address], [place] - [facility] [place] 5 08:44:59 Dysfunction of left eustachian tube 0166360645737 106 Active 2024 OLVIN SEGURA MD 100 [facility], [address], [place], [address], [facility] - [facility] [place] 5 08:45:10 Obstructive sleep apnea syndrome 13420595 Active 2024 DUC WILSON MD 100 [facility],[address], [address], [place] [facility] [place] 09:18:42 Problem Notes None recorded. Procedures Surgical History Date Name Laterality Status Provider Name and Address Organization Details Recorded Time 08/05/20 25 Allergy Immunotherapy Injections completed GLORIA DICKSON RMA [facility] [place], [address], [facility] - [facility] 08/05/2025 09:50:43 07/23/20 25 Allergy Immunotherapy Injections completed Isaak Peters 100 [facility],[address], [address], [facility] - [facility] 07/23/2025 09:14:00 07/07/20 25 Allergy Immunotherapy Injections completed PHUONG HUDSON 100 [facility],[address], [address], [facility] - [facility] [place] 07/07/2025 10:10:21 06/24/20 25 Allergy Immunotherapy Injections completed GLORIA DICKSON RMA [address] [facility] [place],[address], [address], [facility] - [facility] [place] 06/24/2025 13:03:20 06/16/20 25 Allergy Immunotherapy Injections completed Isaak Peters [address] [place] [address],[address], [address], [facility] - [facility] 06/16/2025 09:56:04 06/16/20 25 Epistaxis Simple Nasal Cautery Left completed DUC VAZ MD [address] [facility] [place],[address], [address], [facility] - [facility] [place] 06/16/2025 09:17:51 06/10/20 25 Allergy Immunotherapy Injections completed Isaak Peters 100 [facility],[address], [address], [facility] - [facility] 06/10/2025 09:21:19 06/01/20 25 Allergy Immunotherapy Injections completed PHUONG HUDSON [address], [place], [address], [place] [facility] [place] 06/01/2025 11:31:08 05/13/20 25 Allergy Immunotherapy Injections completed PHUONG OROPEZA [address], [place], [address], [place] [facility] [place] 05/13/2025 11:09:40 04/30/20 25 Allergy Immunotherapy Injections completed BETSEY ABREU RN [address], [place], [address], [place] [facility] [place] 04/30/2025 09:18:48 04/14/20 25 Allergy Immunotherapy Injections completed PHUONG OROPEZA [address], [place], [address], [place] [facility] [place] 04/14/2025 10:16:59 04/09/20 25 Allergy Immunotherapy Injections completed PHUONG HUDSON [facility] [place],[address] [place] [address], [address], [place] [facility] [place] 04/09/2025 12:14:36 03/19/20 25 Allergy Immunotherapy Injections completed BETSEY ABREU RN [address] [facility],[address] [place] [address], [address], [place] [facility] [place] 03/19/2025 09:21:37 03/05/20 25 Allergy Immunotherapy Injections completed PHUONG HUDSON [facility],[address] [place] [address], [address], [place] [facility] [place] 03/05/2025 11:22:37 02/13/20 25 Allergy Immunotherapy Injections completed BETSEY ABREU RN [address] [place] [address], [address], [place] [facility] [place] 02/12/2025 09:59:36 02/06/20 25 Allergy Immunotherapy Injections completed BETSEY ABREU RN [address], [place], [address], [place] [facility] [place] 02/05/2025 10:59:03 01/23/20 25 Allergy Immunotherapy Injections completed PHUONG HUDSON [address], [place], [address], [place] [facility] [place] 01/22/2025 09:10:11 01/14/20 25 Allergy Immunotherapy Injections completed PHUONG HUDSON [address], [place], [address], [facility] - [facility] [place] 01/13/2025 10:43:27 01/02/20 25 Allergy Immunotherapy Injections completed GLORIA DICKSON RMA [address], [place], [address], [place] [facility] [place] 01/01/2025 09:41:22 12/19/19 25 Allergy Immunotherapy Injections completed PHUONG HUDSON [address], [place], [address], [place] [facility] 12/18/2024 09:51:23 12/11/19 25 Allergy Immunotherapy Injections completed BETSEY ABREU RN [address] [place] [address], [address], [facility] - [facility] [place] 12/11/2024 09:18:09 12/04/19 25 Allergy Immunotherapy Injections completed GLORIA DICKSON RMA [address] [place] [address], [address], [facility] - [facility] [place] 12/04/2024 13:23:39 11/23/19 25 Allergy Immunotherapy Injections completed GLORIA DICKSON RMA [address] [place] [address], [address], [facility] - [facility] [place] 11/23/2024 09:43:57 10/16/19 25 Allergy Testing-Full completed PHUONG HUDSON [address], [place], [address], [place] [facility] [place] 10/16/2024 10:11:58 10/13/20 24 Allergy Testing Modified- Quantitative Testing (MQT) Only completed PHUONG HUDSON [address], [place], [address], [place] [facility] [place] 10/13/2024 10:01:03 09/07/20 24 Air & Speech Audio with Tymps - 19094, [address] & [address]7425 completed Aisha Weinberg [place] - [facility] 09/07/2024 13:28:10 Tonsillectomy completed Osbaldo Hastings [place] - [facility] 09/07/2024 13:39:08 Imaging Results None recorded. [...] INTO EACH NOSTRIL IN THE MORNING SHAKE GENTLY/[place] BEFORE 1ST USE&CLEAN TIP active Not [...] Updated DateTime 07/07/2025 157.48 cm 37.9 kg/m2 92758.62 g Maribell Florence [place] - [facility] 07/07/2025 09:34:59 Social History None recorded. [...] ICD10 Code Diagnosis IMO Codes Diagnosis Note [id number] BETSEY ABREU RN Allergy [address] [place] [address], [place] [address] 06/10/2025 09:03:06 06/10/2025 09:22:18 Perennial allergic rhinitis 548223608 J30.89 [id number] DUC COLES MD [facility] of [address] [address] 06/16/2025 08:55:00 06/16/2025 09:22:56 Allergic rhinitis 62079572 J30.89 1117879130 Bleeding from nose 98128 6005 R04.0 2558 Obstructiv e sleep apnea syndrome 21546879 G47.33 7940005 71601 BETSEY ABREU RN Allergy [address] [place] [address] 06/16/2025 09:24:26 06/16/2025 09:56:32 Perennial allergic rhinitis 326931592 J30.89 65235 PHUONG HUDSON Allergy [address] [place] [address] 06/24/2025 09:34:40 06/24/2025 13:03:57 Perennial allergic rhinitis 494029075 J30.89 [id number] EDDIE HAGAN [facility] of [address] [address] 07/07/2025 09:27:00 07/07/2025 09:55:38 Allergic rhinitis 90226275 J30.89 0453946257 Bleeding from nose 19273 6005 R04.0 2558 Obstructiv e sleep apnea syndrome 62393177 G47.33 1997098 Continue therapy with humidifica tion setting. 21178 PHUONG HUDSON Allergy [address] [place] [address] 07/07/2025 09:55:48 07/07/2025 10:10:48 Perennial allergic rhinitis 603573757 J30.89 Health Concerns Section Related Observation LastModified by Organization Detai ls LastModified Time None Recorded Concern Status LastModified by Organization Details LastModified Time None Recorded Payers Encounter Date Sequence Insurance Name Policy Number Policy Whittington Covered Member ID Whittington Member ID Guarantor Name 07/07/2025 1 [place] [facility] Gian Nair [id number] Gian Nair Notes Date Note Type Note [...] a couple days ago. DUC VAZ MD [address] [place] [address], [address], [facility] - [facility] 07/07/2025 13:54:33 OBGyn Episode No OBEpisode recorded.
--- OUTSIDE RECORDS SUMMARY | 2025-08-23 16:49 | XMS_ITS | Clinical Summary ---
Author Organization [employer] Address [address] [place] [address] 7 [place] [address] Care Team Providers Care Statistical Methods Teacher Name Role Phone Jeanette Mohan Primary Care Provider [phone] Allergies No known active allergies Medications Blood Pressure kitIndications:E ssential hypertension Use as directed 1 kit 01/10/20 23 Active fluticasone (Flonase) 50 MCG/ACT nasal sprayIndications :Acute non-recurrent frontal sinusitis SPRAY 2 SPRAYS INTO EACH NOSTRIL IN THE MORNING SHAKE GENTLY/PRIME BEFORE 1ST USE&CLEAN TIP 48 mL 03/02/20 24 Active cetirizine (ZyrTEC) 10 MG tabletIndication s:Acute non-recurrent frontal sinusitis TAKE 1 TABLET BY MOUTH EVERY DAY IN THE MORNING 90 tablet 1 01/26/20 25 Active NIFEdipine CC (Adalat CC) 30 MG 24 hr tabletIndication s:Primary hypertension Take 1 tablet (30 mg) by mouth before breakfast. Do not crush, chew, or split. 30 tablet 11 04/28/20 25 026 Active Symbicort 80-4.5 MCG/ACT inhalerIndicatio ns:Asthma, unspecified asthma severity, unspecified whether complicated, unspecified whether persistent INHALE 2 PUFFS IN THE MORNING AND AT BEDTIME. RINSE MOUTH WITH WATER AFTER USE TO REDUCE AFTERTASTE AND INCIDENCE OF CANDIDIASIS. DO NOT SWALLOW. 10.2 each 1 08/11/20 25 Active olmesartan (Benicar) 20 MG tabletIndication s:Primary hypertension Take 1 tablet (20 mg) by mouth Once per day. 30 tablet 11 08/16/20 25 026 Active Symbicort 80-4.5 MCG/ACT inhalerIndicatio ns:Asthma, unspecified asthma severity, unspecified whether complicated, unspecified whether persistent INHALE 2 PUFFS IN THE MORNING AND AT BEDTIME. RINSE MOUTH WITH WATER AFTER USE TO REDUCE AFTERTASTE AND INCIDENCE OF CANDIDIASIS. DO NOT SWALLOW. 10.2 each 1 04/27/20 25 025 Discontinued olmesartan (BENIcar) 5 MG tabletIndication s:Essential hypertension TAKE 1 TABLET BY MOUTH EVERY DAY IN THE MORNING 90 tablet 05/24/20 025 Discontinued Active Problems Problem Noted Date Diagnosed Date Obstructive sleep apnea 04/17/2024 Dental calculus 03/23/2024 Dental caries 03/23/2024 Gingival bleeding 03/23/2024 Tooth impaction 03/23/2024 Primary hypertension 02/19/2023 Overview (02/25/2023): Olmesartan 5mg daily Maintenance: BMP: 02/2023 Lipid Panel: 02/2023 - Aerobic exercise to reduce BP. Initial goal of 30 min walk 3-5x/week. Increase as tolerated. - low-sodium diet (goal: <2g/day) and heart healthy diet such as DASH to reduce BP and prevent ASCVD. - Home BP monitoring 1-2 x day with goal of <140/90. - Seek immediate medical attention for chest pain, palpitations, SOB, syncope, or sudden changes in mental status. - Do not change or discontinue current prescriptions without first consulting health care provider Assessment & Plan (02/25/2023 1:28 PM EDT): Continue current regimen Other hyperlipidemia 02/19/2023 Overview (02/25/2023): Lipids 02/2023 Will continue to monitor. Lifestyle recs only Assessment & Plan (02/25/2023 1:29 PM EDT): Continue current regimen Repeat 12 months Allergic rhinitis 02/15/2023 Class 2 obesity 02/15/2023 Status post tonsillectomy 02/15/2023 Healthcare maintenance 01/14/2023 Overview (03/02/2024): Pap: Pap LSIL 03/26/2024-->neg colpo [facility] 05/27/2023. Plan for repeat pap 05/2024 Mammogram: Discuss screen at age 40. No family hx of breast cancer CRC: Mother dx in 30's. Patient referred to GI 01/2022 d/t rectal bleeding. Completed colonoscopy 09/2022 in [place]. Reports needing repeat in 5 years Immunizations: UTD. Declines flu Vision: UTD Dental: UTD PHQ-9 negative Asthma 01/09/2023 Overview (01/14/2023): Symbicort PRN Singulair daily Assessment & Plan (02/25/2023 1:29 PM EDT): Well controlled Continue current regimen GERD (gastroesophageal reflux disease) 3 Migraine 01/09/2023 Resolved Problems Problem Noted Date Diagnosed Date Resolved Date Dental calculus 10/22/2022 01/09/2023 Dental caries 10/22/2022 02/25/2023 Gingivitis due to dental plaque 10/22/2022 01/09/2023 Encounters Date Type Department Care Team Description 08/23/[address] [facility] [address] [place] [phone] Jeanette Mohan FNP pap results 08/23/2025 Results Follow-Up [facility] [address] [place] [phone] Jeanette Mohan FNP Pap Smear 08/16/2025 9:15 AM EST Procedure Visit [facility] [address] [place] [phone] Jeanette Mohan FNP Encounter for Papanicolaou smear for cervical cancer screening (Primary Dx); Primary hypertension 08/16/[address] [facility] [address] [place] [phone] Jeanette Mohan FNP 08/16/2025 Travel 08/13/[address] [facility] [address] [place] [address] [phone] Jeanette Mohan FNP Chart Prep 08/09/[address] [facility] [address] [place] [address] Valier [facility] Asthma, unspecified asthma severity, unspecified whether complicated, unspecified whether persistent 06/17/[address] [facility] [address] [place] [address] Valier [facility] oct recall from Last 3 Months Immunizations Immunization Administration Dates Next Due DTP 03/31/2000 DTaP 12/25/1999, 7,06/24/1996,1995 HPV, Quadrivalent 10/28/2009,06/22/2009,06/30/20 07 Hep A, Unspecified 06/30/2007 Hep A, ped/adol, 2 dose 07/09/2011 Hep B, Unspecified 06/24/1996,02/13/1996, 996 HiB, unspecified 03/18/1997, 6,04/22/1996,1995 IPV 12/25/1999, 6,04/22/1996,1995 Influenza Whole 06/22/2009 Influenza, IIV3, injectable 07/09/2011, 0 MMR 12/25/1999,12/16/1996 Meningococcal ACWY, unspecified 03/12/2013,11/27,06/30/2007 Pfizer Covid-19 Vaccine 12+ Bivalent 02/19/2023 Pneumococcal Conjugate PCV 20 04/28/2025 Pneumococcal Polysaccharide PPSV23 06/24/2018 Tdap 02/19/2023 Varicella 06/30/2007,03/18/1997 Family History Medical History Relation Name Comments Migraines Father Bipolar disorder Mother Colon cancer Mother Relation Name Status Comments Father Mother Social History Tobacco Use Types Packs/Day Years Used Date Smoking Tobacco: Former Cigarettes Passive Smoke Exposure: Past Smokeless Tobacco: Never Tobacco Cessation:Counseling Given: Not Answered Alcohol Use Standard Drinks/Week Comments Yes 1 (1 standard drink = 0.6 oz pur e alcohol) Alcohol Answer Date Recorded Frequency of Alcohol Consumption Not on file 03/02/2024 Average Number of Drinks Not on file 024 Frequency of Binge Drinking Not on file 02/12 Score 0 03/02/2024 Depression Answer Date Recorded Patient Health Questionnaire-9 Score 2 08/16/2025 Patient Health Questionnaire-9 Score 2 08/16/2025 Last PHQ-9: Questionnaire Data Not on file 1 10/16/2024 Housing Stability Answer Date Recorded What is your housing situation today? I have ladan kimbrough 04/20/[address] you li ve. Do you have problems with any of the following? None of the above 04/20/2025 Food Insecurity Answer Date Recorded Within the past 12 months, y ou worried that your food would run out before you got money to buy more: Never True 04/20/2025 Within the past 12 months,th e food you bought just didn't last and you didn't have enough money to get more: Never True 05/2025 Transportation Answer Date Recorded In the past 12 months, has l ack of transportation kept you from medical appts, meetings, work or from getting things needed for daily living? No 04/20/2025 Utilities Answer Date Recorded In the past 12 months, has t he electric, gas, oil or water company threatened to shut off services in your home? No 04/20/2025 Depression Answer Date Recorded Patient Health Questionnaire-2 Score 0 08/16/2025 Internet Access Answer Date Recorded Internet Access Q1 Yes 04/20/2025 Internet Access Q2 Not on file 04/20/2025 Comments No Intention Date Recorded Wants to become (finding) 04/28 Sex and Gender Information Value Date Recorded Sex Assigned at Female 08/13/2022 10:40 AM EDT Legal Sex Female 10:40 AM EDT Gender Identity Female 08/13/2022 10:40 AM EDT Sexual Orientation Straight 08/13/2022 10 :40 AM EDT Last Filed Vital Signs Vital Sign Reading Time Taken Comments Blood Pressure 160/90 08/16/2025 9:46 AM EST Pulse 110 08/16/2025 9:24 AM EST Temperature 36.9 C (98.5 F) 04/28/2025 2:00 PM EDT Respiratory Rate 20 08/16/2025 9:24 AM EST Oxygen Saturation 99% 03/02/2024 9:06 AM EDT Inhaled Oxygen Concentration - - Weight 95.3 kg (210 lb 3.2 oz) 08/16/2025 9:24 A M EST Height 157.5 cm (5' 2 ) 08/16/2025 9:24 AM EST Body Mass Index 38.45 08/16/2025 9:24 AM EST Plan of Treatment Upcoming Encounters Date Type Department Care Team (Late st Contact Info) Description 08/30/2025 10:30 AM EST Clinical Support [facility] [address] [place] [address] 09/27/2025 9:00 AM EST Office Visit [facility] [address] [place] [address] Valier, Jeanette, [employer] OPERATOR [address] [place] [address] 09/28/2025 2:00 PM EST Office Visit [facility] [address] [place] [phone] David Arriagaaris [address] [place] [address] Health Maintenance Due Date Last Done Comments HIV Screening 1995 Hepatitis C Screening 12/13/2013 COVID-19 Vaccine ( season) 2025 02/19/2023, 09/30/2021, 02/07/2021, Additional history exists Influenza Vaccine (#1) 2025 1, 08/04/2010, 06/22/2009 Dental Oral Exam 09/17/2025 03/17/2025, 07/2024, 10/22/2022 Dental Prophylaxis 09/17/2025 03/17/2025, 0 03/23/2024, 10/22/2022 Dental X-Ray: Full Mouth 10/23/2025 10/22/2022, 12/04/2022 Dental X-Ray: Bitewings 03/18/2026 03/17/20 25, 03/23/2024, 10/22/2022 SDOH Screening 04/20/2026 04/20/2025 Alcohol/Substance Use Screening 04/28/2026 04/28/2025 Family Planning (PISQ) 04/29/2026 04/29/2025 Depression Screening 08/16/2026 08/16/2025, 08/16/20 25 Disability Screening 08/16/2026 08/16/2025 Tobacco Screening 08/16/2026 08/16/2025 Lipid Panel 02/19/2028 02/18/2023 Pap Smear 08/16/2028 08/16/2025, 03/26/2023 DTaP/Tdap/Td Vaccines (6 - Td or Tdap) 02/19/2033 02/19/2023, 03/31/2000, 12/25/1999, Additional history exists Zoster Vaccines (1 of 2) 12/13/2045 RSV Patients and Patients Aged 60 years or older (1 - 1-dose 75+ series) 12/13/2070 Hepatitis B Vaccines Completed 06/24/1996, 02/13/1996, 1995 HIB Vaccines Completed 03/18/1997, 06/14, 04/22/1996, Additional history exists IPV Vaccines Completed 12/25/1999, 06/14, 04/22/1996, Additional history exists HPV Vaccines Completed 10/28/2009, 06/2009, 06/30/2007 Hepatitis A Vaccines Completed 07/09/2011, 07/09/2011, 06/30/2007 Meningococcal Vaccine Completed 03/12/2013 , 11/27/2007, 06/30/2007 Pneumococcal Vaccine: Pediatrics (0 to 5 Years) and At-Risk Patients (6 to 49) Years Completed 04/28/2025, 06/24/2018 Meningococcal B Vaccine Aged Out No l onger eligible based on patient's age to complete this topic RSV under 20 months Aged Out No longe r eligible based on patient's age to complete this topic Rotavirus Vaccines Aged Out No longer eligible based on patient's age to complete this topic Procedures Procedure Name Priority Date/Time Associated Diagnosis Comments PAP SMEAR Routine 08/16/2025 9:39 AM EST Encounter for Papanicolaou smear for cervical cancer screening HPV DNA, LOW/HIGH RISK Routine 08/16/2025 9:39 AM EST AMB REFERRAL TO ENT Routine 07/07/2025 Chronic middle ear effusion, bilateral PROPHYLAXIS - ADULT Routine 03/17/2025 8 :00 AM EDT Gingival bleeding Dental calculus BITEWINGS - 4 RADIOGRAPHIC IMAGES Routine 03/17/2025 8:00 AM EDT Dental caries extending into pulp Fractured dental scientology with loss of material Recurrent dental caries extending into dentin Gingival bleeding Dental caries Dental calculus Tooth impaction PERIODIC ORAL EVALUATION - ESTABLISHED PATIENT Routine 03/17/2025 8:00 AM EDT Dental caries extending into pulp Fractured dental scientology with loss of material Recurrent dental caries extending into dentin Gingival bleeding Dental caries Dental calculus Tooth impaction Encounter for dental examination LIPID PANEL, STANDARD Routine 02/18/2023 9:36 AM EDT Essential hypertension INTRAORAL - COMPLETE SERIES OF RADIOGRAPHIC IMAGES Routine 10/22/2022 11:00 AM EST from Last 3 Months or Most Recently Relevant to Health Maintenance Results * HPV DNA, Low/High Risk (08/16/2025 9:39 AM EST) HPV High Risk Negative Negative [facility] HPV Genotype 16 Negative Negative [facility] HPV Genotype 18 Negative Negative [facility] Comment:HPV testing performe d at [facility] (CLIA#[id number]), [address] [place] [address].Testing for HPV was performed using the Felipe ADARSH 6800system. The presence of HPV in the female genital tract isassociated with a number of diseases, including cervicalcarcinoma. The HPV DNA high risk pool tests for HPV 31, 33,35, 39, 45, 51, 52, 56, 58, 59, 66 and 68. The testing forHPV 16 and 18 genotypes has also been performed. A positiveresult indicates detection of nucleic acid sequences fromone or more subtypes, whereas a negative result indicatessuch sequences were not detected. 08/16/2025 9:39 AM EST 08/17/2025 9:31 AM EST [facility] BLOOD ORDERABLES Final Re sult [facility] [address] [place] [address] [phone] * Pap Smear (08/16/2025 9:39 AM EST) Swab Cervical swab / Unknown 08/16/2025 9:39 AM EST 08/17/2025 8:50 AM EST Narrative [facility] - 08/20/2025 3:11 PM EST ----- ------- Name: Gian Nair Age/Sex: 29/F : 1995 Unit#: [id number] Attend Dr: Re08/16/25 Status: PRE REF [facility] Disch: ----- ------- SPEC : [id number] RECD: 08/17/25 STATUS: EMMETT [place] NUM: [id number] DANIELLE: 08/16/[address] [facility] [address]: Jeanette Mohan 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 Negative for intraepithelial lesion or malignancy. HPV High Risk: Negative HPV Genotyping 16: Negative HPV Genotyping 18: Negative Clinical Information LMP: 07/30/2025 Previous PAP test: LSIL 2022 Other surgery: Other history: Material Received ThinPrep-Cervical ----- ------- Signed (signature on file) ASHLI Molina ([facility]) 08/20/25 1511 ----- ------- END OF REPORT [facility] CYTOLOGY ORDERABLES Final Result [facility] [address] [place] [phone] * Referral to ENT (07/07/2025) [facility] OUTPATIENT REFERRAL ORDERABLE S Final Result * (ABNORMAL) Lipid Panel, Standard (02/18/2023 9:36 AM EDT) [facility] Cholesterol, Total 204(H) <200 mg/dL [facility] HDL Cholesterol 55 > OR = 50 mg/dL [facility] Triglycerides 134 <150 mg/dL [facility] LDL Cholesterol 124(H) mg/dL (calc) [facility] Comment: Reference range: <100 Desirable range <100 mg/dL for primary prevention; <70 mg/dL for patients with CHD or diabetic patients with > or = 2 CHD risk factors. LDL-C is now calculated using the Laura calculation, which is a validated novel method providing better accuracy than the Friedewald equation in the estimation of LDL-C. Rafal PALMA et al. MALOU. 2013;310(19): 1399-9859 (http://education.PopUp/faq/CBV433) Chol/HDLC Ratio 3.7 <5.0 (calc) [facility] Non-HDL Cholesterol 149(H) <130 mg/dL (calc) [facility] Comment: For patients with diabetes plus 1 major ASCVD risk factor, treating to a non-HDL-C goal of <100 mg/dL (LDL-C of <70 mg/dL) is considered a therapeutic option. Blood Venous blood specimen / Unknown 02/18/2023 9:36 AM EDT 02/18/2023 9:37 AM EDT Narrative [facility] - 02/18/2023 8:20 PM EDT FASTING:YES FASTING: YES [facility] BLOOD ORDERABLES Final Re sult [facility] [address], [place] [address] [facility] [address] [place] [phone] from Last 3 Months or Most Recently Relevant to Health Maintenance Insurance [facility] FULL [facility] C3 DENTAL-[facility] MEDICAID STAND ADULT Care Teams Statistical Methods Teacher Relationship Specialty Start Date End Date Jeanette Mohan FNP [address] [place] [phone] PCP - General Family Medicine 01/26/22
--- OUTSIDE RECORDS SUMMARY | 2025-08-23 16:49 | XMS_ITS | Data Portability ---
Author Organization [facility] - [facility], Allergy Address [address] [place] [address] Care Team Providers Care Peat Shredder Tender Name Role Phone [facility] Primary Care Provider [phone] NAME, REYMUNDO Primary Care Provider Assessment Encounter Date Assessment Date Assessment LastModified by Organization Details LastModified Time 06/24/2025 06/24/2025 Visit With: Ayla Colbert Use of Antihistamines: No If yes: Vial Test Change in medications: No If yes Increase in asthma symptoms If yes, inhaler use: Reaction to last injections: No If yes: Allergy Symptoms: Other: Missed: Dose Aware of Vial Test Aware: Notes: [email or web address] Not available 06/24/2025 13:03:27 07/07/2025 07/07/2025 29-year-old female, with history of [...] were answered. [email or web address] Not available 07/07/2025 12:39:36 07/07/2025 07/07/2025 Visit With: Isaak Peters MA Use of Antihistamines: Yes If yes: Vial Test Change in medications: No If yes Increase in asthma symptoms If yes, inhaler use: Reaction to last injections: No If yes: Allergy Symptoms: Other: Missed: Dose Aware of Vial Test Aware: Notes: Not available 07/07/2025 10:10:35 07/23/2025 07/23/2025 Visit With: Isaak Peters MA Use of Antihistamines: Yes If yes: Vial Test Change in medications: No If yes Increase in asthma symptoms No If yes, inhaler use: Reaction to last injections: No If yes: Allergy Symptoms: Other: Missed: Dose Aware of Vial Test Aware: Notes: [email or web address] Not available 07/23/2025 09:13:38 08/05/2025 08/05/2025 Visit With: PHUONG Alicea Use of Antihistamines: No If yes: Vial Test Change in medications: No If yes Increase in asthma symptoms If yes, inhaler use: Reaction to last injections: No If yes: Allergy Symptoms: Other: Missed: 1 week Dose Repeated Aware of Vial Test Aware: Notes: [email or web address] Not available 08/05/2025 09:50:58 Plan of Treatment Reminders Order Date Submit Date Provider Last Modified By Organization Details Last Modified Time Details Appointments [facility]- Allergy f-up 6mon 2025 09:00A M EDDIE [...] Organization Details Recorded Time Abnormal auditory perception 01839705 Active 2023 Aisha narvaez [place] - [facility] 4 13:28:19 Allergic rhinitis 45357026 Active 2023 DUC WILSON MD [address] [place] [address] [place], [address] [facility] - [facility] 5 09:17:57 Seasonal allergic rhinitis 821190736 Active 2023 Kanwal Costello null, [place] - [facility] [place] 4 13:45:35 Non-allergi c rhinitis 789852684490 Active 2023 Kanwal Morrisonchen null[place] - [facility] [place] 4 13:45:35 Feeling of lump in throat 329782812 Active 2023 Kanwal Costello null[place] - [facility] [place] 4 16:11:03 Perennial allergic rhinitis 065738900 Active 2024 Isaakfranki Jonesos [address] [facility], [facility] [place], [address], [facility] - [facility] [place] 5 09:13:18 Bleeding from nose 002557492 Active 2024 OLVIN SEGURA MD [address] [facility], [place], [address], [facility] - [facility] [place] 5 08:44:48 Allergic rhinitis caused by pollen 45137404 Active 2024 OLVIN SEGURA MD [address] [facility], [address], [facility] [place], [address], [facility] - [facility] [place] 5 08:44:59 Dysfunction of left eustachian tube 6179451580957 106 Active 2024 OLVIN SEGURA MD [address] [facility], E [facility], [facility] [place], [address], [facility] - [facility] [place] 5 08:45:10 Obstructive sleep apnea syndrome 23658974 Active 2024 DUC WILSON MD [address] [facility], [address], [place], [address], [facility] - [facility] [place] 5 09:18:42 Problem Notes None recorded. Procedures Surgical History Date Name Laterality Status Provider Name and Address Organization Details Recorded Time 08/05/20 Allergy Immunotherapy Injections completed GLORIA DICKSON Elissa [address] [facility] [address],[place] [address], [place], [address], [place] - [facility] 08/05/2025 09:50:43 07/23/20 25 Allergy Immunotherapy Injections completed Isaak Peters [address], [address], [place] - [facility] [place] 07/23/2025 09:14:00 07/07/20 25 Allergy Immunotherapy Injections completed JANNETTE HUDSONA [address], [address], [place] - [facility] [place] 07/07/2025 10:10:21 06/24/20 25 Allergy Immunotherapy Injections completed GLORIA DICKSON A [address], [address], [place] - [facility] [place] 06/24/2025 13:03:20 06/16/20 25 Allergy Immunotherapy Injections completed Isaak Peters [address] [facility] [address], [address], [place] - [facility] [place] 06/16/2025 09:56:04 06/16/20 25 Epistaxis Simple Nasal Cautery Left completed DUC VAZ MD [address] [facility] [address],[address], [address], [place] - [facility] 06/16/2025 09:17:51 06/10/20 25 Allergy Immunotherapy Injections completed Isaak Peters [address] [facility] [address],[address] [place] [address], [address], [place] - [facility] 06/10/2025 09:21:19 06/01/20 25 Allergy Immunotherapy Injections completed PHUONG HUDSON [address], [address], [place] - [facility] [place] 06/01/2025 11:31:08 05/13/20 25 Allergy Immunotherapy Injections completed GLORIA DICKSON RMA [address], [address], [place] - [facility] [place] 05/13/2025 11:09:40 04/30/20 25 Allergy Immunotherapy Injections completed BETSEY ABREU RN [address] [facility] [address], [address], [place] - [facility] [place] 04/30/2025 09:18:48 04/14/20 25 Allergy Immunotherapy Injections completed PHUONG ALICEA [address], [address], [place] - [facility] [place] 04/14/2025 10:16:59 04/09/20 25 Allergy Immunotherapy Injections completed PHUONG HUDSON [address], [address], [place] - [facility] [place] 04/09/2025 12:14:36 03/19/20 25 Allergy Immunotherapy Injections completed BETSEY ABREU RN [address] [place] [address], [address], [place] - [facility] [place] 03/19/2025 09:21:37 03/05/20 25 Allergy Immunotherapy Injections completed PHUONG HUDSON [address] [place] [address], [address], [place] - [facility] [place] 03/05/2025 11:22:37 02/13/20 25 Allergy Immunotherapy Injections completed BETSEY ABREU RN [address] [place] [address], [address], [place] - [facility] [place] 02/12/2025 09:59:36 02/06/20 25 Allergy Immunotherapy Injections completed BETSEY ABREU RN [address] [place] [address], [address], [place] - [facility] 02/05/2025 10:59:03 01/23/20 25 Allergy Immunotherapy Injections completed PHUONG HUDSON [address], [address], [place] - [facility] 01/22/2025 09:10:11 01/14/20 25 Allergy Immunotherapy Injections completed PHUONG HUDSON [address] [place] [address], [address], [place] - [facility] 01/13/2025 10:43:27 01/02/20 25 Allergy Immunotherapy Injections completed GLORIA DICKSON RMElissa [address], [place], [address], [facility] - [facility] [place] 01/01/2025 09:41:22 12/19/19 25 Allergy Immunotherapy Injections completed PHUONG HUDSON [address] [facility],[facility] [address], [address], [facility] - [facility] 12/18/2024 09:51:23 12/11/19 25 Allergy Immunotherapy Injections completed BETSEY ABREU RN [address] [facility],[address], [address], [facility] - [facility] [place] 12/11/2024 09:18:09 12/04/19 25 Allergy Immunotherapy Injections completed GLORIA DICKSON [facility] [address] [facility] [address], [address], [facility] - [facility] 12/04/2024 13:23:39 11/23/19 25 Allergy Immunotherapy Injections completed GLORIA DICKSON [facility] [address] [facility] [address], [address], [facility] - [facility] 11/23/2024 09:43:57 10/16/19 25 Allergy Testing-Full completed PHUONG HUDSON [address] [facility],[address], [address], [facility] - [facility] 10/16/2024 10:11:58 10/13/20 24 Allergy Testing Modified- Quantitative Testing (MQT) Only completed PHUONG HUDSON [address] [facility],[address], [address], [facility] - [facility] 10/13/2024 10:01:03 09/07/20 24 Air & Speech Audio with Tymps - 45770, 34959 & 18160 completed Aisha Weinberg [place] - [facility] 09/07/2024 13:28:10 Tonsillectomy completed Osbaldo Hastings [place] - [facility] 09/07/2024 13:39:08 Imaging Results None recorded. [...] INTO EACH NOSTRIL IN THE MORNING SHAKE GENTLY/TN M[place]ISON BEFORE 1ST USE&CLEAN TIP active Not [...] Updated DateTime 07/07/2025 157.48 cm 37.9 kg/m2 66163.62 g Maribell Florence [place] - [facility] 07/07/2025 09:34:59 Social History None recorded. [...] ICD10 Code Diagnosis IMO Codes Diagnosis Note [id number] KANWAL COSTELLO PA-C [facility] [address] [address] 09/07/2024 12:40:34 09/08/2024 07:20:13 Abnormal auditory perception 30995577 H93.299 Audiologic al evaluation results: Right ear: Normal hearing with excellent word recognitio n. Left ear: Normal hearing with excellent word recognitio n. Tympanomet ry: Right Ear:Type As Left Ear:Type As Allergic rhinitis 801507 04 J30.9 Feeling of lump in throat 511942449 R09.89 [id number] AYLA COLBERT [facility] Allergy [address] [place] [address],[facility] 100 [place] [address] 10/13/2024 08:46:06 10/13/2024 10:11:59 Allergic rhinitis 58346385 J30.9 [id number] AYLA COLBERT [address],[facility] 100 [place] [address] 10/16/2024 08:51:44 10/16/2024 10:14:06 Allergic rhinitis 62320703 J30.9 [id number] KANWAL COSTELLO PA-C [facility] 100 [place] [address] 10/27/2024 08:50:14 10/27/2024 09:17:40 Perennial allergic rhinitis 831989540 J30.89 Allergic rhinitis 250048 04 J30.89 [id number] GLORIA WATSON, [facility] Allergy [address] [place] [address],[facility] 100 [place] [address] 11/23/2024 09:07:25 11/23/2024 09:44:42 Perennial allergic rhinitis 017536915 J30.89 Patient presents to begin immunother apy injections . Reviewed injection hours, importance of compliance and of reporting any changes in medication s. Also reviewed importance of reporting any local reactions to immunother apy injections . For patients of child bearing age, reviewed importance of reporting . Follow up with MD made in 6 months. [id number] GLORIA WATSON, [facility] Allergy [address] [place] [address],[facility] [address] [place] [address] 12/04/2024 13:11:06 12/04/2024 13:25:21 Perennial allergic rhinitis 479857096 J30.89 Patient presents to begin immunother apy injections . Reviewed injection hours, importance of compliance and of reporting any changes in medication s. Also reviewed importance of reporting any local reactions to immunother apy injections . For patients of child bearing age, reviewed importance of reporting . Follow up with MD made in 6 months. [id number] BETSEY ABREU RN Allergy [address] [place] [address], ite [address] [place], [place] [address] [place] [address] 12/11/2024 09:08:33 12/11/2024 09:18:30 Perennial allergic rhinitis 949682357 J30.89 [id number] AYLA COLBERT [facility] Allergy [address] [place] [address] ite [address] [place] [address] 12/18/2024 09:34:41 12/18/2024 09:52:22 Perennial allergic rhinitis 698541527 J30.89 [id number] [facility] All[facility] [address] [place], [place] [address] 100 [place] [address] 01/01/2025 09:31:51 01/01/2025 09:41:49 Perennial allergic rhinitis 819091180 J30.89 Patient presents to begin immunother apy injections . Reviewed injection hours, importance of compliance and of reporting any changes in medication s. Also reviewed importance of reporting any local reactions to immunother apy injections . For patients of child bearing age, reviewed importance of reporting . Follow up with MD made in 6 months. [id number] GLORIA WATSON, [facility] Allergy [address] [place], [place] [address] 100 [place] [address] 01/13/2025 10:21:26 01/13/2025 10:44:12 Perennial allergic rhinitis 530071648 J30.89 Patient presents to begin immunother apy injections . Reviewed injection hours, importance of compliance and of reporting any changes in medication s. Also reviewed importance of reporting any local reactions to immunother apy injections . For patients of child bearing age, reviewed importance of reporting . Follow up with MD made in 6 months. [id number] AYLA FILEMON [facility] Allergy [address] [place] [address] ite 100 [facility] [place] [address] 01/22/2025 09:02:38 01/22/2025 09:10:28 Perennial allergic rhinitis 748944610 J30.89 [id number] BETSEY ABREU RN Allergy [address] [place] [address], ite 100 [facility] [place] [address] 02/05/2025 10:46:08 02/05/2025 10:59:32 Perennial allergic rhinitis 185082705 J30.89 [id number] BETSEY ABREU RN Allergy [address] [place] [address], [place] [address] 02/12/2025 09:01:26 02/12/2025 10:00:03 Perennial allergic rhinitis 943355536 J30.89 [id number] OLVIN SEGURA MD [facility] [place] [address] [place] [address] 02/15/2025 14:00:46 02/15/2025 14:40:49 Bleeding from nose 484015507 R04.0 2558 Allergic r hinitis caused by pollen 00984342 J30.1 56837408 Dysfunctio n of left eustachian tube 8332891894 525548 H69.92 [id number] 03367 AYLA COLBERT [address] [place] [address] 03/05/2025 09:06:49 03/05/2025 11:36:29 Perennial allergic rhinitis 940600374 J30.89 [id number] BETSEY ABREU RN Allergy [address] [place] [address], [place] [address] 03/19/2025 09:01:12 03/19/2025 09:22:46 Perennial allergic rhinitis 328083294 J30.89 [id number] [facility] All[facility] [address] [place] [address], [place] [address] 04/09/2025 11:05:22 04/09/2025 12:15:06 Perennial allergic rhinitis 929473953 J30.89 Patient presents to begin immunother apy injections . Reviewed injection hours, importance of compliance and of reporting any changes in medication s. Also reviewed importance of reporting any local reactions to immunother apy injections . For patients of child bearing age, reviewed importance of reporting . Follow up with made in 6 months. [id number] [facility] Allergy [address] [place] [address], [place] [address] 04/14/2025 09:50:22 04/14/2025 10:17:40 Perennial allergic rhinitis 505789137 J30.89 Patient presents to begin immunother apy injections . Reviewed injection hours, importance of compliance and of reporting any changes in medication s. Also reviewed importance of reporting any local reactions to immunother apy injections . For patients of child bearing age, reviewed importance of reporting . Follow up with MD made in 6 months. [id number] BETSEY ABREU RN Allergy [address] [place] [address], [place] [address] 04/30/2025 09:04:30 04/30/2025 09:19:50 Perennial allergic rhinitis 725574734 J30.89 [id number] GLORIA DICKSON [facility] Allergy [address] [place] [address], [place] [address] 05/13/2025 10:25:18 05/13/2025 11:10:41 Perennial allergic rhinitis 555860818 J30.89 Patient presents to begin immunother apy injections . Reviewed injection hours, importance of compliance and of reporting any changes in medication s. Also reviewed importance of reporting any local reactions to immunother apy injections . For patients of child bearing age, reviewed importance of reporting . Follow up with MD made in 6 months. [id number] AYLA COLBERT [facility] Allergy [address] [place] [address], [place] [address] 06/01/2025 11:16:35 06/01/2025 11:31:26 Perennial allergic rhinitis 542398475 J30.89 [id number] BETSEY ABREU RN Allergy [address] [place] [address], [place] [address] 06/10/2025 09:03:06 06/10/2025 09:22:18 Perennial allergic rhinitis 887111565 J30.89 [id number] DUC COLES MD [facility] [address] [place] [address] 06/16/2025 08:55:00 06/16/2025 09:22:56 Allergic rhinitis 18787068 J30.89 9895614876 Bleeding from nose 91753 6005 R04.0 2558 Obstructiv e sleep apnea syndrome 14347557 G47.33 [id number] [id number] BETSEY ABREU RN Allergy [address] [place] [address], [place] [address] 06/16/2025 09:24:26 06/16/2025 09:56:32 Perennial allergic rhinitis 791886457 J30.89 [id number] AYLA FILEMON Elissa Allergy [address] [place] [address] [place] [address] 06/24/2025 09:34:40 06/24/2025 13:03:57 Perennial allergic rhinitis 513477457 J30.89 [id number] EDDIE HAGAN [facility] Ashok [address] [facility] [place] [address] 07/07/2025 09:27:00 07/07/2025 09:55:38 Allergic rhinitis 52450407 J30.89 6711662133 Bleeding from nose 46516 6005 R04.0 2558 Obstructiv e sleep apnea syndrome 30070946 G47.33 [id number] Continue therapy with humidifica tion setting. 40488 AYLA COLBERT Elissa Allergy [address] [place] [address] [place] [address] 07/07/2025 09:55:48 07/07/2025 10:10:48 Perennial allergic rhinitis 059583431 J30.89 24541 Isaak Peters Allergy [address] [place] [address] [place] [address] 07/23/2025 09:06:05 07/23/2025 09:14:15 Perennial allergic rhinitis 812578025 J30.89 [id number] GLORIA WATSON, [facility] Allergy [address] [place] [address] [place] [address] 08/05/2025 09:15:30 08/05/2025 09:51:19 Perennial allergic rhinitis 984156266 J30.89 Health Concerns Section Related Observation LastModified by Organization Detai ls LastModified Time None Recorded Concern Status LastModified by Organization Details LastModified Time None Recorded Advance Directives Directive None Recorded Payers Insurance Date Sequence Insurance Name Policy Number Policy Whittington Covered Member ID Whittington Member ID Guarantor Name 08/18/2025 1 [place] [facility] Gian Nair [id number] Gian Nair Notes Date Note Type Note [...] a couple days ago. DUC VAZ MD [address] [place] [address], [place], [address], [facility] - [facility] 07/07/2025 13:54:33 OBGyn Episode No OBEpisode recorded.
--- OUTSIDE RECORDS SUMMARY | 2025-08-23 16:49 | XMS_ITS | Encounter Summary ---
Author Organization [employer] Address [address] [facility] 7[address] [place] [address] Care Team Providers Care Smocker Name Role Phone Kimberlee, Jeanette [facility] Primary Care Provider [phone] Encounter Details Date Type Department Care Team ([facility] st Contact Info) Description 08/23/2025 Results Follow-Up [facility] [address] [place], [place] [id number] [place] [facility] [address] [place] [address] Pap Smear Social History Tobacco Use Types Packs/Day Years Used Date Smoking Tobacco: Former Cigarettes Passive Smoke Exposure: Past Smokeless Tobacco: Never Alcohol Use Standard Drinks/Week [...] Q2 Not on file 04/20/2025 Comments No Sex and Gender Information Value Date Recorded Sex Assigned at Female 08/13/2022 10:40 AM EDT Legal Sex Female 10:40 AM EDT Gender Identity Female 08/13/2022 10:40 AM EDT Sexual Orientation Straight 08/13/2022 10 :40 AM EDT documented as of this encounter Plan of Treatment Upcoming Encounters Date Type Department Care Team (Late st Contact Info) Description 08/30/2025 10:30 AM EST Clinical Support [facility] [address] [place] [address] 09/27/2025 9:00 AM EST Office Visit [facility] [address] [place] [address] Jeanette Mohan FNP [address] [place] [address] 09/28/2025 2:00 PM EST Office Visit [facility] [address] [place] [address] Corina, Azra [address] [place] [address] documented as of this encounter Visit Diagnoses Not on filedocumented in this encounter Additional Health Concerns Assessment Noted Time PHQ-9 Depression Total Score: 2 08/16/20 25 9:26 AM EST documented as of this encounter Care Teams Smocker Relationship Specialty Start Date End Date Jeanette Mohan FNP [address] [place] [address] PCP - General Family Medicine 01/26/22 documented as of this encounter
--- OUTSIDE RECORDS SUMMARY | 2025-08-23 16:49 | XMS_ITS | Encounter Summary ---
Author Organization [employer] Address [address] [facility] 7 [place] [address] Care Team Providers Care Fabric Machine Operator Name Role Phone Kimberlee [facility] Primary Care Provider [phone] Encounter Details Date Type Department Care Team ([facility] st Contact Info) Description 08/16/2025 Orders Only [facility] [address] [place], [place] [phone] Stanley [facility] [address] [place], [place] [phone] Social History Tobacco Use Types Packs/Day Years [...] AM EDT documented as of this encounter Functional Status * Over the past 2 weeks, how often have you been bothered by any of the following problems? Question Answer Date of Assessment Author Patient Health Questionnaire -2 Score 0 08/16/2025 9:26 AM Juani Salinas MA * Little interest or pleasure in doing things Answer Date of Assessment Author Not at all 08/16/2025 9:26 AM Juani Salinas MA * Feeling down, depressed, or hopeless Answer Date of Assessment Author Not at all 08/16/2025 9:26 AM Juani Salinas MA * Trouble falling or staying asleep, or sleeping too much Answer Date of Assessment Author Several days 08/16/2025 9:26 AM Juani Salinas MA * Feeling tired or having little energy Answer Date of Assessment Author Several days 08/16/2025 9:26 AM Juani Salinas MA * Poor appetite or overeating Answer Date of Assessment Author Not at all 08/16/2025 9:26 AM Juani Salinas MA * Feeling bad about yourself - or that you are a failure or have let yourself or your family down Answer Date of Assessment Author Not at all 08/16/2025 9:26 AM Juani Salinas MA * Trouble concentrating on things, such as reading the newspaper or watching television Answer Date of Assessment Author Not at all 08/16/2025 9:26 AM Juani Salinas MA * Moving or speaking so slowly that other people could have noticed? Or the opposite - being so fidgety or restless that you have been moving around a lot more than usual. Answer Date of Assessment Author Not at all 08/16/2025 9:26 AM Juani Salinas MA * Thoughts that you would be better off or hurting yourself in some way Answer Date of Assessment Author Not at all 08/16/2025 9:26 AM Juani Salinas MA * Patient Health Questionnaire-9 Score Answer Date of Assessment Author 2 08/16/2025 9:26 AM Juani Salinas MA * How difficult have these problems made it for you to do your work, take care of things at home, or get along with other people? Answer Date of Assessment Author Somewhat difficult 08/16/2025 9:26 AM Juani Lei MA * Over the last 2 weeks, how often have you been bothered by any of the following problems? Question Answer Date of Assessment Author Feeling nervous, anxious, or on edge 1 08/16/2025 9:26 AM Juani Salinas MA Not being able to stop or co ntrol worrying 0 08/16/2025 9:26 AM Juani Salinas MA Worrying too much about diff erent things 0 08/16/2025 9:26 AM Juani Salinas MA Trouble relaxing 1 08/16/2025 9:26 AM Juani Shaw MA Being so restless that it is hard to sit still 0 08/16/2025 9:26 AM Juani Salinas MA Becoming easily annoyed or irritable 1 08/16/2025 9:26 AM Juani Salinas MA Feeling afraid as if somethi ng awful might happen 0 08/16/2025 9:26 AM Juani Salinas MA GISSEL-7 Total Score 3 08/16/2025 9:26 AM EST Juani Ramos MA documented as of this encounter Plan of Treatment Upcoming Encounters Date Type Department Care Team (Late st Contact Info) Description 08/30/2025 10:30 AM EST Clinical Support [facility] [address] [place] [address] 09/27/2025 9:00 AM EST Office Visit [facility] [address] [place] [address] Stanley, Jeanette, MILLER SUPERVISOR [address] [place] [address] 09/28/2025 2:00 PM EST Office Visit [facility] ADULT DENTAL [address] [place] [address] Corina, Azra [address] [place] [address] documented as of this encounter Procedures Procedure Name Priority Date/Time Associated Diagnosis Comments HPV DNA, LOW/HIGH RISK Routine 08/16/2025 9:39 AM EST documented in this encounter Results * HPV DNA, Low/High Risk (08/16/2025 9:39 AM EST) HPV High Risk Negative Negative [facility] HPV Genotype 16 Negative Negative [facility] HPV Genotype 18 Negative Negative [facility] Comment:HPV testing performe d at [facility] (CLIA#[id number]), [address] [place] [address].Testing for HPV was performed using the Felipe [...] 9:39 AM EST 08/17/2025 9:31 AM EST [facility] LAB BLOOD ORDERABLES Final Re sult [facility] [address] [place] [address] [phone] documented in this encounter Visit Diagnoses Not on filedocumented in this encounter Additional Health Concerns Assessment Noted Time PHQ-9 Depression Total Score: 2 08/16/20 25 9:26 AM EST documented as of this encounter Care Teams Fabric Machine Operator Relationship Specialty Start Date End Date Jeanette Mohan FNP [address] [place] [id number] PCP - General Family Medicine 01/26/22 documented as of this encounter
--- OUTSIDE RECORDS SUMMARY | 2025-08-23 16:49 | XMS_ITS | Continuity of Care Document ---
Author Organization MD - [facility], Allergy Address [address] [place] [phone] Care Team Providers Care Snow Plow Operator Name Role Phone [facility] Primary Care Provider NAMEREYMUNDO Primary Care Provider [phone] Assessment Encounter Date Assessment Date Assessment LastModified by Organization Details LastModified Time 06/16/2025 06/16/2025 Visit With: Betsey Abreu RN Use of Antihistamine s: No If yes: Vial Test Change in medications: No If yes Increase in asthma symptoms No Asthma Hx If yes, inhaler use: Reaction to last injections: No If yes: Allergy Symptoms: Other: Missed: Dose Aware of Vial Test Aware: Notes: Not available 06/16/2025 09:56:13 Plan of Treatment Reminders Order Date Submit Date Provider Last Modified By Organization Details Last Modified Time Details Appointments [facility]- Allergy f-up 6mon 2025 09:00A [...] Organization Details Recorded Time Abnormal auditory perception 63976239 Active 2023 Aisha narvaez [place] - [facility] 13:28:19 Allergic rhinitis 31421417 Active 2023 DUC WILSON MD [address] [facility], [place], [address] [place] [address] - [facility] 5 09:17:57 Seasonal allergic rhinitis 132700515 Active 2023 Marianathalia Costello null, [place] - [facility] 4 13:45:35 Non-allergi c rhinitis 396877360588 Active 2023 [facility], [place] - [facility] 4 13:45:35 Feeling of lump in throat 194355157 Active 2023 [facility], [place] - [facility] 4 16:11:03 Perennial allergic rhinitis 628301609 Active 2024 Isaak Fran [address] [place] [address], [facility] [place], [address], [facility] - [facility] 5 09:13:18 Bleeding from nose 595175342 Active 2024 OLVIN SEGURA MD [address] [place] [address], [place], [address], [facility] - [facility] 5 08:44:48 Allergic rhinitis caused by pollen 67393402 Active 2024 OLVIN SEGURA MD [address] [place] [address], [place], [address], [facility] - [facility] 5 08:44:59 Dysfunction of left eustachian tube 4057600660697 106 Active 2024 OLVIN SEGURA MD [address] [place] [address], [place], [address], [facility] - [facility] 5 08:45:10 Obstructive sleep apnea syndrome 25028819 Active 2024 DUC WILSON MD [address] [place] [address], [facility] [place], [address], [facility] - [facility] 5 09:18:42 Problem Notes None recorded. Procedures Surgical History Date Name Laterality Status Provider Name and Address Organization Details Recorded Time 10/23/20 25 Allergy Immunotherapy Injections completed GLORIA DICKSON, RMA [address], [place], [address], [place] - [facility] 08/05/2025 09:50:43 07/23/20 25 Allergy Immunotherapy Injections completed Isaak Peters [address], [place], [address], [place] - [facility] 07/23/2025 09:14:00 07/07/20 25 Allergy Immunotherapy Injections completed LELO COLBERT RMA [address], [place], [address], [place] - [facility] 07/07/2025 10:10:21 06/24/20 25 Allergy Immunotherapy Injections completed GLORIA DICKSON, RMA [address], [place], [address], [place] - [facility] 06/24/2025 13:03:20 06/16/20 25 Allergy Immunotherapy Injections completed Isaak Peters [address] [facility], [place], [address], [facility] - [facility] 06/16/2025 09:56:04 06/16/20 25 Epistaxis Simple Nasal Cautery Left completed DUC VAZ MD [address] [facility], [place], [address], [facility] - [facility] 06/16/2025 09:17:51 06/10/20 25 Allergy Immunotherapy Injections completed Isaak Peters [address] [facility] [place],[address] [facility], [place], [address], [facility] - [facility] 06/10/2025 09:21:19 06/01/20 25 Allergy Immunotherapy Injections completed LELO COLBERT RMA [address], [place], [address], [facility] - [facility] 06/01/2025 11:31:08 05/13/20 25 Allergy Immunotherapy Injections completed GLORIA DICKSON, RMA [address], [place], [address], [place] - [facility] 05/13/2025 11:09:40 04/30/20 25 Allergy Immunotherapy Injections completed BETSEY ABREU RN [address], [place], [address], [place] - [facility] 04/30/2025 09:18:48 04/14/20 25 Allergy Immunotherapy Injections completed GLORIA DICKSON RMElissa [address], [place], [address], [place] - [facility] 04/14/2025 10:16:59 04/09/20 25 Allergy Immunotherapy Injections completed PHUONG HUDSON [address], [place], [address], [place] - [facility] 04/09/2025 12:14:36 03/19/20 25 Allergy Immunotherapy Injections completed BETSEY ABREU RN [address], [address], [place] - [facility] 03/19/2025 09:21:37 03/05/20 25 Allergy Immunotherapy Injections completed PHUONG HUDSON [address] [place] [address], [address], [place] - [facility] 03/05/2025 11:22:37 02/13/20 25 Allergy Immunotherapy Injections completed BETSEY ABREU RN [address] [facility],[address] [place] [address], [address], [place] - [facility] 02/12/2025 09:59:36 02/06/20 25 Allergy Immunotherapy Injections completed BETSEY ABREU RN [address] [facility] [place],[address] [place] [address], [address], [place] - [facility] 02/05/2025 10:59:03 01/23/20 25 Allergy Immunotherapy Injections completed PHUONG HUDSON [address], [address], [place] - [facility] 01/22/2025 09:10:11 01/14/20 25 Allergy Immunotherapy Injections completed PHUONG HUDSON [address], [address], [place] - [facility] 01/13/2025 10:43:27 01/02/20 25 Allergy Immunotherapy Injections completed GLORIA DICKSON, RMA [address], [place], [address], [facility] - [facility] 01/01/2025 09:41:22 12/19/19 25 Allergy Immunotherapy Injections completed PHUONG HUDSON [address], [place], [address], [facility] - [facility] 12/18/2024 09:51:23 12/11/19 25 Allergy Immunotherapy Injections completed BESTEY ABREU RN [address], [place], [address], [facility] - [facility] 12/11/2024 09:18:09 12/04/19 25 Allergy Immunotherapy Injections completed GLORIA DICKSON, RMA [address], [place], [address], [facility] - [facility] 12/04/2024 13:23:39 11/23/19 25 Allergy Immunotherapy Injections completed GLORIA DICKSON, RMA [address] [facility], [place], [address], [facility] - [facility] 11/23/2024 09:43:57 10/16/19 25 Allergy Testing-Full completed PHUONG HUDSON [address] [facility], [place], [address], [facility] - [facility] 10/16/2024 10:11:58 10/13/20 24 Allergy Testing Modified- Quantitative Testing (MQT) Only completed PHUONG HUDSON [address] [facility], [place], [address], [facility] - [facility] 10/13/2024 10:01:03 09/07/20 24 Air & Speech Audio with Tymps - 87171, 39816 & 22177 completed Aisha Weinberg MD - [facility] 09/07/2024 13:28:10 Tonsillectomy completed Osbaldo Hastings MD - [facility] 09/07/2024 13:39:08 Imaging Results None recorded. [...] INTO EACH NOSTRIL IN THE MORNING SHAKE GENTLY/FL [place] BEFORE 1ST USE&CLEAN TIP active Not [...] ICD10 Code Diagnosis IMO Codes Diagnosis Note [id number] PHUONG HUDSON Allergy [address] [place] [phone] 06/01/2025 11:16:35 06/01/2025 11:31:26 Perennial allergic rhinitis 809728004 J30.89 11093 BETSEY ABREU RN Allergy [address] [place] [address] 06/10/2025 09:03:06 06/10/2025 09:22:18 Perennial allergic rhinitis 911393349 J30.89 12233 DUC COLES MD [facility] [address] [place] [address] 06/16/2025 08:55:00 06/16/2025 09:22:56 Allergic rhinitis 00729683 J30.89 7427771601 Bleeding from nose 20791 6005 R04.0 2558 Obstructiv e sleep apnea syndrome 20472599 G47.33 [id number] BETSEY ABREU RN Allergy [address] [facility] [address] [facility] [place] [address] 06/16/2025 09:24:26 06/16/2025 09:56:32 Perennial allergic rhinitis 432814199 J30.89 Health Concerns Section Related Observation LastModified by Organization Detai ls LastModified Time None Recorded Concern Status LastModified by Organization Details LastModified Time None Recorded Payers Encounter Date Sequence Insurance Name Policy Number Policy [place]itting[place] Covered Member ID [place]itting[place] Member ID Guarantor Name 06/16/2025 1 MEDICAID-[place]: [facility] Gian Nair [id number] Gian Nair Notes Date Note Type Note [...] taking cetirizine for allergies. DUC VAZ MD [address] [place] [address],[place] [address], [place], [address], [facility] - [facility] 06/16/2025 09:20:32 OBGyn Episode No OBEpisode recorded.
--- OUTSIDE RECORDS SUMMARY | 2025-08-23 16:49 | XMS_ITS | Encounter Summary ---
Author Organization [employer] Address [address] [place] [address] 7 [place] [address] Care Team Providers Care Taffy Candy Maker Name Role Phone [facility] Primary Care Provider [phone] Reason for Visit * Reason Onset Date Comments pap results 08/23/2025 Encounter Details Date Type Department Care Team ([facility] Contact Info) Description 08/23/2025 Telephone [facility] [address] [place], [place] [phone] Bena [facility] [address] [place] [address] pap results Social History Tobacco Use Types Packs/Day Years [...] AM EDT documented as of this encounter Miscellaneous Notes * Telephone Encounter - Sobeida Pruitt MA - 08/23/2025 2:18 PM EST T/C to pt to notify pap results normal and that needs be repeated 3 years. documented in this encounter Plan of Treatment Upcoming Encounters Date Type Department Care Team (Late st Contact Info) Description 08/30/2025 10:30 AM EST Clinical Support [facility] [address] [place] [id number] 09/27/2025 9:00 AM EST Office Visit [facility] [address] [place] [phone] Jeanette Mohan FNP [address] [place] [address] 09/28/2025 2:00 PM EST Office Visit [facility] ADULT DENTAL [address] [place] [address] Azra Arriaga [address] [place] [address] documented as of this encounter Visit Diagnoses Not on filedocumented in this encounter Additional Health Concerns Assessment Noted Time PHQ-9 Depression Total Score: 2 08/16/20 25 9:26 AM EST documented as of this encounter Care Teams Taffy Candy Maker Relationship Specialty Start Date End Date Jeanette Mohan FNP [address] [place] [address] PCP - General Family Medicine 01/26/22 documented as of this encounter
--- OUTSIDE RECORDS SUMMARY | 2025-08-23 16:49 | XMS_ITS | Continuity of Care Document ---
Author Organization [place] - [facility], Allergy Address [address] [place] [address] Care Team Providers Care Pot Liner Name Role Phone [facility] Primary Care Provider [phone] NAME, REYMUNDO Primary Care Provider [phone] Assessment Encounter Date Assessment Date Assessment LastModified by Organization Details LastModified Time 07/23/2025 07/23/2025 Visit With: Isaak Peters MA Use of Antihistamine s: Yes If yes: Vial Test Change in medications: No If yes Increase in asthma symptoms No If yes, inhaler use: Reaction to last injections: No If yes: Allergy Symptoms: Other: Missed: Dose Aware of Vial Test Aware: Notes: Not available 07/23/2025 09:13:38 Plan of Treatment Reminders Order Date Submit [...] Organization Details Recorded Time Abnormal auditory perception 31631296 Active 2023 Aisha narvaez [place] - [facility] 13:28:19 Allergic rhinitis 17963655 Active 2023 DUC WILSON MD 100 [facility] 100, [place], [address] [place] [address] - [facility] 09:17:57 Seasonal allergic rhinitis 509895032 Active 2023 [facility] null, [place] - [facility] 13:45:35 Non-allergi c rhinitis 196155568944 Active 2023 [facility], [place] [facility] 13:45:35 Feeling of lump in throat 357013177 Active 2023 [facility] null, [place] [facility] 16:11:03 Perennial allergic rhinitis 539976324 Active 2024 Isaak Peters [address] [address], [place], [address], [facility] - [facility] 09:13:18 Bleeding from nose 467684275 Active 2024 OLVIN SEGURA MD [address] [place] [address], [place], [address], [facility] - [facility] 08:44:48 Allergic rhinitis caused by pollen 88326998 Active 2024 OLVIN SEGURA MD [address] [place] [address], [facility] [place] [place], [address], [facility] - [facility] 08:44:59 Dysfunction of left eustachian tube [id number] 106 Active 2024 OLVIN SEGURA MD [address] [place] [address], [facility] [place] [place], [address], [facility] - [facility] 08:45:10 Obstructive sleep apnea syndrome 30844029 Active 2024 DUC WILSON MD [address] [place] [address], [facility] [place] [place], [address], [facility] - [facility] 09:18:42 Problem Notes None recorded. Procedures Surgical History Date Name Laterality Status Provider Name and Address Organization Details Recorded Time 10/23/20 25 Allergy Immunotherapy Injections completed GLORIA KORZEC, RMA [address], [place], [address], [place] - [facility] 08/05/2025 09:50:43 07/23/20 25 Allergy Immunotherapy Injections completed Isaak Peters [address], [place], [address], [place] [facility] 07/23/2025 09:14:00 07/07/20 25 Allergy Immunotherapy Injections completed JANNETTE HUDSONA [address], [place], [address], [place] [facility] 07/07/2025 10:10:21 06/24/20 25 Allergy Immunotherapy Injections completed GLORIA DICKSON, RMA [address], [place], [address], [place] [facility] 06/24/2025 13:03:20 06/16/20 25 Allergy Immunotherapy Injections completed Isaak Peters [address], [place], [address], [place] [facility] 06/16/2025 09:56:04 06/16/20 25 Epistaxis Simple Nasal Cautery Left completed DUC VAZ MD [address] [place] [address], [address], [place] - [facility] 06/16/2025 09:17:51 06/10/20 25 Allergy Immunotherapy Injections completed Isaak Peters [address], [place], [address], [facility] - [facility] 06/10/2025 09:21:19 06/01/20 25 Allergy Immunotherapy Injections completed LELO COLBERT RMA [address], [place], [address], [place] [facility] 06/01/2025 11:31:08 05/13/20 25 Allergy Immunotherapy Injections completed GLORIA DICKSON, RMA [address], [place], [address], [place] [facility] 05/13/2025 11:09:40 04/30/20 25 Allergy Immunotherapy Injections completed BETSEY ABREU RN [address], [place], [address], [place] [facility] 04/30/2025 09:18:48 04/14/20 25 Allergy Immunotherapy Injections completed PHUONG OROPEZA [address], [place], [address], [place] [facility] 04/14/2025 10:16:59 04/09/20 25 Allergy Immunotherapy Injections completed PHUONG HUDSON [address], [place], [address], [place] [facility] 04/09/2025 12:14:36 03/19/20 25 Allergy Immunotherapy Injections completed BETSEY ABREU RN [address] [place] [address], [address], [place] [facility] 03/19/2025 09:21:37 03/05/20 25 Allergy Immunotherapy Injections completed PHUONG HUDSON [address] [place] [address], [address], [place] [facility] 03/05/2025 11:22:37 02/13/20 25 Allergy Immunotherapy Injections completed BETSEY ABREU RN [address] [place] [address], [address], [place] [facility] 02/12/2025 09:59:36 02/06/20 25 Allergy Immunotherapy Injections completed BETSEY ABREU RN [address] [facility] [place] [address], [address], [place] [facility] 02/05/2025 10:59:03 01/23/20 25 Allergy Immunotherapy Injections completed PHUONG HUDSON [address], [place], [address], [place] [facility] 01/22/2025 09:10:11 01/14/20 25 Allergy Immunotherapy Injections completed PHUONG HUDSON [address], [place], [address], [place] [facility] 01/13/2025 10:43:27 01/02/20 25 Allergy Immunotherapy Injections completed GLORIA DICKSON, RMA [address], [place], [address], [facility] - [facility] 01/01/2025 09:41:22 12/19/19 25 Allergy Immunotherapy Injections completed PHUONG HUDSON [address], [place], [address], [facility] - [facility] 12/18/2024 09:51:23 12/11/19 25 Allergy Immunotherapy Injections completed BETSEY ABREU RN [address], [place], [address], [facility] - [facility] 12/11/2024 09:18:09 12/04/19 25 Allergy Immunotherapy Injections completed GLORIA DICKSON, RMA [address] [facility], [place], [address], [facility] - [facility] 12/04/2024 13:23:39 11/23/19 25 Allergy Immunotherapy Injections completed GLORIA DICKSON, [facility] [address] [facility], [place], [address], [facility] - [facility] 11/23/2024 09:43:57 10/16/19 25 Allergy Testing-Full completed PHUONG HUDSON [address] [facility], [place], [address], [facility] - [facility] 10/16/2024 10:11:58 10/13/20 24 Allergy Testing Modified- Quantitative Testing (MQT) Only completed PHUONG HUDSON 100 [facility],[address], [place], [address], [facility] - [facility] 10/13/2024 10:01:03 09/07/20 24 Air & Speech Audio with Tymps - 88625, 42794 & 10961 completed Aisha Weinberg [place] - [facility] 09/07/2024 13:28:10 Tonsillectomy completed Osbaldo Hastings [place] - [facility] 09/07/2024 13:39:08 Imaging Results None recorded. [...] ICD10 Code Diagnosis IMO Codes Diagnosis Note [id number] PHUONG HUDSON [facility] [address] [place] [address] [address] 06/24/2025 09:34:40 06/24/2025 13:03:57 Perennial allergic rhinitis [id number] J30.89 [id number] [facility]DIE [facility]AGAN [facility] of [address] [address] 07/07/2025 09:27:00 07/07/2025 09:55:38 Allergic rhinitis 33960269 J30.89 [id number] Bleeding from nose 56802 6005 R04.0 2558 Obstructiv e sleep apnea syndrome 83213708 G47.33 [id number] Continue therapy with humidifica tion setting. [id number] PHUONG HUDSON Allergy 100 [facility], [address] [place] [address] 07/07/2025 09:55:48 07/07/2025 10:10:48 Perennial allergic rhinitis 535175727 J30.89 61468 Isaak Fran [facility] 100 [facility] 100 [place] [address] 07/23/2025 09:06:05 07/23/2025 09:14:15 Perennial allergic rhinitis 372918634 J30.89 Health Concerns Section Related Observation LastModified by Organization Detai ls LastModified Time None Recorded Concern Status LastModified by Organization Details LastModified Time None Recorded Payers Encounter Date Sequence Insurance Name Policy Number Policy [place] Covered Member ID [place] Member ID Guarantor Name 07/23/2025 1 [place] [facility] Gian Nair [id number] Gian Nair OBGyn Episode No OBEpisode recorded.
== END 2025-08-23 14:29 | disposition home or self-care (01) ==
LOC: HO.LNP 14:28
PROVIDERS: Visit Provider Registered Nurse
DX: Z12.4 Encounter for screening for malignant neoplasm of cervix (principal); Z11.51 Encounter for screening for human papillomavirus (HPV)
CPT/HCPCS: 87626; 88175